=== PATIENT | male | born 1960 | race Caucasian/White ===

== ENCOUNTER 2016-08-19 20:30 | Inpatient (IN) | payer OTHER ==
--- NOTE | ~2016-08-19 | CN ---
Consultation Report [facility] [address] [place] [place]. [address] NAME: SRAVANTHI HIDALGO : 56 STATUS : ADM IN PAT#: [id number] AGE: 56 ADM/REG DATE : 08/20/16 MR#: [id number] REPORT SERV DATE: 08/20/16 DICTATED BY: YUMIKO SANTACRUZ DATE: 08/20/16 REPORT STATUS : Draft TRANSCRIBED BY: MODL DATE: 08/20/16 NEUROLOGY CONSULTATION DATE OF CONSULTATION: 08/20/2016 REASON FOR CONSULTATION: Subacute stroke. HOSPITALIST: Javier Alonso MD HISTORY OF PRESENT ILLNESS: The patient is a 56-year-old male, who has been having right- sided weakness for three days. He woke up yesterday morning with a right-sided facial droop and slurred speech. Consequently, he came to the emergency department for further evaluation and treatment. This morning, it is difficult to obtain a history from the patient. He is lethargic to obtunded. He has severe dysarthria, and it is difficult to understand him. He may have a slight aphasia. Unfortunately, no family is available at this point to obtain an accurate H and P. According to the patient's chart, his symptoms were constant, moderately severe and pronounced at the initial presentation, they did not resolve and so he came to the emergency department. PAST MEDICAL HISTORY: Hypertension, GERD, depression, osteoarthritis, obesity, and BPH. PAST SURGICAL HISTORY: Multiple lumbar laminectomies and left foot surgery. HOME MEDICATION LIST: Includes Dexilant 60 mg daily, Proscar 5 mg at bedtime, lisinopril 40 mg daily, potassium chloride 20 mEq daily, Zoloft 100 mg daily, and Flomax 0.4 mg at bedtime. ALLERGIES: NONE. SOCIAL HISTORY: The patient is single. He works as a concrete craftsman. He does not smoke, drink alcohol, or use illicits. FAMILY HISTORY: Unobtainable from the patient or the chart. REVIEW OF SYSTEMS: Unobtainable. PHYSICAL EXAMINATION: GENERAL: The patient is a 56-year-old male, who stands 6 feet 1 inch tall and weighs 298 pounds. VITAL SIGNS: He is afebrile. Heart rate 76, respiratory rate 18, O2 saturations on room air 95%, and blood pressure 163/84. NEUROLOGIC: When entering the room, the patient was lying on his side. He was drooling from the right corner of his mouth. He was difficult to arouse, obtunded. He would arouse Consultation Report [place] [id number] [place] [id number] NAME: SRAVANTHI HIDALGO : 56 STATUS : ADM IN PAT#: [id number] AGE: 56 ADM/REG DATE : 08/20/16 MR#: [id number] REPORT SERV DATE: 08/20/16 DICTATED BY: YUMIKO SANTACRUZ DATE: 08/20/16 REPORT STATUS : Draft TRANSCRIBED BY: ALESSIA DATE: 08/20/16 to painful stimuli or significant verbal stimulation. The patient had obvious ptosis of the right eye and significant right facial droop. Pupils are 3 mm, they are reactive. EOMs are intact, unable to accurately assess for sensory deficits, the patient is unable to report. He can stick out his tongue and it is deviated to the right. The patient demonstrates no ataxia with zrsgns-jp-lpmh on the left. Unable to perform rpheyf-pb-wlst with the right. He does have a pronator drift on the right. No visible tremor or asterixis. Upper extremity strength is a 4/5 on the left and a 2/5 on the right. DTRs are 3+ and brisk on the right and 2+ on the left. Again, unable to assess for sensation. Lower extremity strength is a 4/5 on the left and a 2/5 on the right. Again, reflexes are 3+ on the right and 2+ on the left. Upgoing toes on the right. The patient is unable to ambulate and incontinent of urine. NECK: No carotid bruits or JVD. CHEST: Lung sounds have some scattered rhonchi. The patient occasionally coughs. CARDIAC: Regular rate and rhythm without murmur, click, gallop, or rub. LABORATORY DATA: CBC normal. BMP relatively normal, potassium 3.7. Cholesterol values are elevated. BNP 503. TSH 2.18. Urinalysis, negative for a UTI. Chest x-ray, cardiomegaly, no acute changes. CT of the brain is read as acute to subacute stroke in left posterior parietal watershed zone and stroke in the right frontal zone, old stroke revealed in the right basal ganglia. NIH Stroke Scale is 9. ASSESSMENT/PLAN: 1. Acute to subacute stroke. At this point, the patient will undergo an MRI of the brain without gadolinium and an MRA of the head and neck with gadolinium. He will also have an echocardiogram with bubble study. He is n.p.o. He is severely dysarthric. He will be placed on aspirin 300 mg rectally and be placed on a statin when he can take p.o. Additional lab work will be checked. PT, OT, and Speech Therapy will be consulted. Case Management will be consulted for rehab placement. 2. Possible secondary seizure. The patient is very drowsy. He is incontinent of urine and was difficult to arouse. Because the patient has had several strokes in the past and now new stroke, he is at risk for secondary seizure. He will be placed on Keppra 750 mg IV q.12 hours. He will have an EEG and be placed on seizure precautions. Thank you again for including us in consultation. We will continue to follow with you. EVELYN/ALESSIA Yumiko Santacruz [facility]- / [id number] CC: Corey Randhawa M.D. Consultation Report [address] [address] NAME: SRAVANTHI HIDALGO : 56 STATUS : ADM IN [facility]#: [id number] AGE: 56 ADM/REG DATE : 08/20/16 MR#: [id number] REPORT SERV DATE: 08/20/16 DICTATED BY: YUMIKO SANTACRUZ DATE: 08/20/16 REPORT STATUS : Draft TRANSCRIBED BY: ALESSIA DATE: 08/20/16 MD Javier Morel MD
--- NOTE | ~2016-08-19 | IDS ---
Interim Discharge Summary [facility] [address] [place]. [address] NAME: SRAVANTHI HIDALGO : 56 STATUS : ADM IN [facility]#: [id number] AGE: 56 ADM/REG DATE : 08/20/16 MR#: [id number] REPORT SERV DATE: 09/09/16 DICTATED BY: BEN MCNEAL DATE: 09/08/16 REPORT STATUS : Draft TRANSCRIBED BY: MODL DATE: 09/08/16 ADMISSION DATE: 08/20/2016 DISCHARGE DATE: CONSULTANTS: Dr. Fuentes, Neurology. Dr. Slava Young, Gastroenterology. Dr. Chris Mayen, General Surgery. PROBLEM LIST: 1. Ischemic strokes, two locations, left brain. 2. Dysphagia, requiring J-tube. 3. Dysarthria. 4. Hypertension. 5. Gastroesophageal reflux. 6. Major depressive disorder. 7. BMI of 39.3. 8. Hyperlipidemia. 9. Chronic systolic congestive heart failure with left ventricular ejection fraction 35% to 40%. 10.Low vitamin B12. 11.Seborrheic dermatitis. 12.Mild anemia. 13.Episode of wide-complex tachycardia, asymptomatic. HISTORY: This patient was admitted on 08/20/2016. He had had several days of weakness on the right side of his body, associated with slurred speech and drooping of the face. Because of this, he came to the emergency room. His blood pressure was 207/119. CT showed ivcis-au-dhrxamrn stroke, 2.7 x 3.2, left posterior parietal watershed area and some older infarcts. He was admitted to our team. CTA of the neck on 08/20/2016 revealed two acute infarctions, left side, in the left frontal and posterior left temporoparietal region, nonhemorrhagic. CTA did not show any filling defects. CT of the neck showed normal carotid, vertebral, and subclavians. 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 Unfortunately, the patient failed his swallowing study. Initially, GI tried to place a PEG- type feeding tube; however, they were unable to transilluminate, so it was not safe, so he underwent J-tube placement with Dr. Chris Mayen on 08/26/2016. Echocardiogram, 08/22/2016, shows left atrial enlargement of 4.1 cm, left ventricular ejection fraction 35% to 40%, anterior anteroseptal apical hypokinesis. No clear evidence of septal defect or patent foramen ovale. The patient was seen by Neurology, recommended for secondary stroke prophylaxis with aspirin and statin. A1c was normal at 5.4. TSH normal at 2.18. He is continued with right-side weakness, although therapy is working with him. At this point in time, we are trying to find arrangements for rehab. Interim Discharge Summary [address] [place]. [address] NAME: SRAVANTHI HIDALGO : 56 STATUS : ADM IN PAT#: [id number] AGE: 56 ADM/REG DATE : 08/20/16 MR#: [id number] REPORT SERV DATE: 09/09/16 DICTATED BY: BEN MCNEAL DATE: 09/08/16 REPORT STATUS : Draft TRANSCRIBED BY: ALESSIA DATE: 09/08/16 He has had some short episodes of nonsustained ventricular tachycardia. He is on beta- gris. He is asymptomatic with these. He has seborrhea on the face and scalp. Topical Selsun Blue is being used for this at this time. He has had some diarrhea, but it is intermittent. Imodium is available for him to use p.r.n. He has some reflux. We have him on Protonix and Pepcid. Nutrition was trying to increase the amount of calories, he is getting up to about 2300, but he has significant obesity with BMI of 39.3, so we are using more conservative calorie quantity that we think will provide him adequate nutrition, especially with his low level of activity at this time. WILLIAN/ALESSIA Ben Mcneal M.D. / [id number] CC: Ben Mcneal M.D.
--- NOTE | ~2016-08-19 | CN ---
Consultation Report [facility] [address] [place]. [address] NAME: SRAVANTHI RIVERA : 56 STATUS : ADM IN PAT#: [id number] AGE: 56 ADM/REG DATE : 08/20/16 MR#: [id number] REPORT SERV DATE: 08/23/16 DICTATED BY: ROCIO NOLEN DATE: 08/23/16 REPORT STATUS : Draft TRANSCRIBED BY: MODL DATE: 08/23/16 GI CONSULTATION DATE OF CONSULTATION: 08/23/2016 REASON FOR CONSULTATION: Evaluation and management of oropharyngeal dysphagia in the setting of acute CVA, need for PEG tube. HISTORY OF PRESENT ILLNESS: Mr. Rivera is a 56-year-old male patient, who was admitted on the 08/20/2016 with a chief complaint of right-sided weakness x3 days. On the day of admission, he woke up with right facial drooping and slurred speech. He was brought into the emergency room, found to have acute left CVA in two separate areas. He has been trialed on Dobbhoff tube which was then unable to be placed. He went to Interventional Radiology today for gastrostomy tube placement which was unsuccessful, thus prompting GI consultation. However, it appears that he has been reordered to have a swallow study at the bedside with Speech Path, as he has had some improvement and is currently drinking water when I go in to see him without difficulty. I have discussed with the patient and the patient's family, if unable to pass next swallow evaluation, we will place PEG on Friday. I did discuss risks, benefits, alternatives, and complications with him to include, but not limited to risk of bleeding, perforation, infection, reaction to medications with cardiac or pulmonary side effects. They are agreeable to proceed. PAST MEDICAL HISTORY: Hypertension, GERD, depression, osteoarthritis, obesity, and BPH. SURGICAL HISTORY: Lumbar laminectomy and left foot surgery. SOCIAL HISTORY: Single. Works in concrete as a cabello. Does not use alcohol, tobacco, or illicits. FAMILY HISTORY: Negative from a GI standpoint. ALLERGIES: NOTHING. HOME MEDICATIONS: Dexilant, Proscar, Proventil, potassium, Zoloft, Flomax. REVIEW OF SYSTEMS: A 10-point review of systems has been obtained with pertinent positives being addressed in the history of present illness. PHYSICAL EXAMINATION: VITAL SIGNS: Temperature is 98.6, pulse of 81, respirations of 20, blood pressure 167/70. NEURO: This is an alert, male, resting in bed with notable right-sided weakness. GENERAL: Cooperative with no apparent distress. He is awake. He is alert. He is oriented x3. Dysarthric speech, but able to understand what he is saying. Consultation Report [place] [address] [place]. [address] NAME: SRAVANTHI RIVERA : 56 STATUS : ADM IN [facility]#: [id number] AGE: 56 ADM/REG DATE : 08/20/16 MR#: [id number] REPORT SERV DATE: 08/23/16 DICTATED BY: ROCIO NOLEN DATE: 08/23/16 REPORT STATUS : Draft TRANSCRIBED BY: ALESSIA DATE: 08/23/16 LUNGS: Diminished throughout with normal respiratory effort exhibited. Equal expansion. CARDIOVASCULAR SYSTEM: Regular rate and rhythm. S1, S2. No murmurs, rubs, or gallops, S3 or S4 appreciated. ABDOMEN: Soft, nontender, obese. EXTREMITIES: No edema. Normal distal pulses. SKIN: Warm, dry, and intact. PERTINENT LABORATORY DATA: Sodium 139, potassium 3.9, BUN is 23, creatinine is 1.04. White count 7.5, hemoglobin 13, hematocrit 39.4, platelet count 241. ASSESSMENT AND PLAN: 1. Oropharyngeal dysphagia in need of PEG tube. 2. Acute stroke, two separate areas on the left side. 3. Hypertension. PLAN: PEG on Friday. If he fails this, repeat swallow study. Orders have been written. GI has been informed and will plan on placing this Friday. AL/ALESSIA ANDA Ramey / [id number] CC: Javier Alonso MD
--- NOTE | ~2016-08-19 | EEG ---
Electroencephalogram [facility] [address] [facility] [address] [place]. [address] NAME: SRAVANTHI HIDALGO : 56 STATUS : ADM IN PAT#: [id number] AGE: 56 ADM/REG DATE : 08/20/16 MR#: [id number] REPORT SERV DATE: 08/20/16 DICTATED BY: DATE: REPORT STATUS : Draft TRANSCRIBED BY: MODL DATE: 08/20/16 NEUROLOGY EEG REPORT CLINICAL INDICATIONS: Encephalopathy. DISCUSSION: This EEG was performed using 10/20 electrode placement system. During the EEG study, symmetric background activity was noted with predominant occipital rhythm of roughly 6 to 7 hertz. Photic stimulation was performed with only trace driving response is seen. Hyperventilation was not performed secondary to the patient's mental status. During the EEG study, the patient had achieved drowsy, stage I and II sleep with appropriate sleep spindles as well as K-complexes, and no focal abnormalities, seizure activity, or seizure discharge was otherwise noted. INTERPRETATION: This EEG study obtained during awake, drowsy as well as stage I and II sleep, may be considered mildly abnormal secondary to mild generalized slowing. No seizure activity, seizure discharge, or focal abnormality was otherwise noted. Clinical correlation is recommended. [facility]/MODL Abdiel Fuentes MD / [id number] CC: Javier Alonso MD
--- NOTE | ~2016-08-19 | IDS ---
Interim Discharge Summary [facility] [address] [place]. [address] NAME: SRAVANTHI HIDALGO : 56 STATUS : ADM IN PAT#: [id number] AGE: 56 ADM/REG DATE : 08/20/16 MR#: [id number] REPORT SERV DATE: 08/27/16 DICTATED BY: DATE: REPORT STATUS : Draft TRANSCRIBED BY: MODL DATE: 08/26/16 ADMISSION DATE: 08/20/2016 DISCHARGE DATE: DIAGNOSES: Current interim diagnoses list includes: 1. Subacute stroke to left posterior parietal area and superior left frontal lobe area. 2. Dysphagia. 3. Dysarthria. 4. Hypertension. 5. Benign prostatic hypertrophy. 6. Gastroesophageal reflux disease. 7. Hiatal hernia. CONSULTS: GI, Dr. Young; and Neurology, Yumiko Toledo and Dr. Fuentes. PROCEDURES AND IMAGIN. 08/19/2016, CT of the brain without contrast showed probable acute to subacute CVA left posterior parietal watershed zone, plus indeterminate age, although possibly second acute to subacute CVA superior left frontal lobe cortex with small old lacunar infarcts in both basal ganglia. 2. Portable chest x-ray showed cardiomegaly accentuated due to shallow inspiration. No acute cardiopulmonary abnormality. 3. EEG on 08/20/2016 showed mildly abnormal secondary to mild generalized slowing with no seizure activity or focal abnormality noted. 4. 08/19/2016 modified barium swallow study. Thin barium was removed from the patient's oral cavity due to the patient retaining thin barium without swallowing. 5. 08/20/2016 CTA of the brain without contrast showed 2 acute infarctions left side, nonhemorrhagic, left frontal and posterior left temporal parietal region. 6. CTA of the neck showed 2 acute infarctions in the left side and intracranial CTA demonstrates no proximal vessel filling defect or embolus. 7. Brachiocephalic CTA demonstrates normal carotid vertebral and subclavian arteries. There is evidence for extensive posterior ossification of the posterior longitudinal ligament. This may result in cord injury or radicular complaints. 8. On 08/23/2016, there was an attempted G-tube placement by Interventional Radiology which failed due to patient's body habitus. 9. On 08/26/2016, the patient was unable to have a J-tube placed per endoscopy and we will have to have placed by surgery. HOSPITAL COURSE: Please see H and P by Dr. Neville Barreto on 08/20/2016 for stroke-like symptoms. The patient was originally obtunded upon admission. The patient has progressively showed improvement of various symptoms but has had prolonged difficulty with swallowing and has had several swallow studies at bedside in addition to the modified barium swallow which he has not passed, the latest being on Friday. An attempt to place the PEG tube per surgery will be done this afternoon. Due to the patient's financial situation of being self-pay, it was recommended by Dietary to use TwoCal for supplementation. The patient also has dysarthria. Speech Therapy at this time thinks the patient might have possible Interim Discharge Summary [place] [id number] [facility] [place]. [address] NAME: SRAVANTHI HIDALGO : 56 STATUS : ADM IN [facility]#: [id number] AGE: 56 ADM/REG DATE : 08/20/16 MR#: [id number] REPORT SERV DATE: 08/27/16 DICTATED BY: DATE: REPORT STATUS : Draft TRANSCRIBED BY: MODL DATE: 08/26/16 vocal cord paralysis, which means that the patient would never be able to swallow, and it was recommended to repeat the swallow prior to patient's discharge. The patient is alert and oriented x3. Has been able to sign his own consent and continues to increase in his verbal ability daily. The patient is able to answer questions appropriately but is still having difficulty with some consonants. The patient had severe right upper lid ptosis and facial droop, which has also been resolving. Physical Therapy has been working with the patient but still requires two patients with a gait belt and walker to get him to the door. The patient's blood pressure has been very labile due to trying to keep his blood pressure high enough so that he does not have another stroke but not too high so that he has another stroke. The patient has been unable to take p.o. medications and has been on IV hydralazine and Catapres patch of 0.32 mg daily. The patient's blood pressure still has been up to 198/94 despite that, so his hydralazine has been increased today to 20 mg, and it is hoped that tomorrow patient will be able to have medication down his NG tube to keep it within normal limits. The patient is on IV fluids at 125 an hour and has been having good kidney function with this. The patient has a history of BPH but has been able to void and empty his bladder even though most of the time he is incontinent but occasionally he is able to void into his urinal. The patient has increased strength in bilateral lower extremities. Physical Therapy now thinks that both legs are equal and patient is now starting to have strength in his right arm. It was noted during endoscopy today that the patient has a moderate hiatal hernia, and the patient also has very large body habitus with a BMI of 135, which has impacted his ability to have previous feeding tube placement. Dobhoff was not able to be placed due to the patient's inability to swallow. The patient's A1c of note is 5.4. The patient is self-pay, which has led to difficulty in trying to get patient DME. The patient has a sister, Taylor, who will be primary caregiver when the patient is discharged. Sister has expressed reluctance to have this responsibility and she will discuss the situation with her other sister. PT is willing to work with them and teach them skills for transferring the patient, so they will be returning phone calls regarding a time that this is possible since the family lives about an hour away. Case management has been trying to get a kayy bed or any possible PT at this time due to patient's good prognosis for increased functionality if he can have PT, OT, and Speech therapy. The patient's labs from today: Sodium is 137, potassium is 3.8, chloride is 104, bicarb is 23.8, BUN is 15, creatinine 0.99, GFR is 97, glucose is 76, calcium is 8.8, magnesium is 2.2, phosphorus is 3.2. WBC is 5.8, hemoglobin 13.0, hematocrit 39.9, platelets 218, INR 1.2. [facility] Kassidy Rodrigues NP / [id number]
--- NOTE | ~2016-08-19 | DS ---
Discharge Summary [facility] [address] [place]. [address] NAME: SRAVANTHI HIDALGO : 56 STATUS : DIS IN PAT#: [id number] AGE: 56 ADM/REG DATE : 08/20/16 MR#: [id number] REPORT SERV DATE: 10/27/16 DICTATED BY: FRANK DRUMMOND DATE: 10/25/16 REPORT STATUS : Draft TRANSCRIBED BY: MODL DATE: 10/25/16 ADMISSION DATE: 08/20/2016 DISCHARGE DATE: 10/25/2016 REASON FOR ADMISSION: This is a 56-year-old male who came in with experiencing weakness over 3-day period, generalized on the right side, and then woke up noticing that he was having a change in his speech and facial droop. Imaging in the ER, CT of the brain which showed probable acute to subacute 2.7 x 3.2 CVA, left posterior parietal watershed, superior left frontal lobe cortex measuring 16 mm, and small old lacunar infarcts. DISCHARGE DIAGNOSES: 1. Status post cerebrovascular accident x2 to left brain approximately 08/20/2016. 2. Status post dysphagia, status post J-tube. 3. Dysarthria, improved. 4. Hypertension. 5. Gastroesophageal reflux disease. 6. Major depressive disorder. 7. BMI of 39.3. 8. Vitamin B12 deficiency. 9. Seborrheic dermatitis. 10.Mild anemia. 11.Episodes of wide-complex tachycardia. 12.Hyperlipidemia with history of elevated liver function enzymes associated with high- dose statin therapy. 13.Chronic systolic congestive heart failure. Please see Dr. Christopher's admission H and P on 08/20/2016 as well as subsequent interim summaries by Kassidy Rodrigues on 08/26/2016, Dr. Titus on 09/03/2016, Dr. Mcneal on 09/09/2016, Dr. Titus on 09/16/2016, Dr. Mcneal on 09/23/2016, Dr. Titus on 09/30/2016, Dr. Mcneal on 10/07/2016, and Dr. Sorto on 10/14/2016. HOSPITAL COURSE: The patient had lengthy hospital stay. However, it was not related to his overall medical condition but rather to his issues with having no family caregivers and needing rehab and not having any insurance. The patient still with some right-sided residual deficit and still in need and resolving dysphagia had a J-tube with feedings for a time but then actually had pulled the J-tube out himself after his dysphagia was resolving. He has been able to eat effectively and have good calorie intake by mouth alone. The J-tube site just has a dressing over it. It has had some moderate amount of serous drainage but nothing to suggest infection. The patient's insurance was finally secured with [employer], and the patient was finally able to receive intermediate rehab placement [place] [facility] [place] and he will be transferring there today. DISCHARGE CONDITION: Stable. DISCHARGE MEDICATIONS: 1. Flomax 0.4 mg p.o. at bedtime. 2. Potassium chloride 20 mEq p.o. daily. Discharge Summary [address] [id number] [place]. [address] NAME: SRAVANTHI HIDALGO : 56 STATUS : DIS IN PAT#: [id number] AGE: 56 ADM/REG DATE : 08/20/16 MR#: [id number] REPORT SERV DATE: 10/27/16 DICTATED BY: FRANK DRUMMOND DATE: 10/25/16 REPORT STATUS : Draft TRANSCRIBED BY: ALESSIA DATE: 10/25/16 3. Dexilant 60 mg p.o. daily. 4. Lisinopril 40 mg p.o. daily. 5. Zoloft 100 mg p.o. daily. 6. Proscar 5 mg p.o. at bedtime. 7. Aspirin 81 mg p.o. daily. 8. Carafate 1 g p.o. before meals and at bedtime. 9. Hydrocortisone cream b.i.d. to affected areas. 10.Keppra 250 mg p.o. b.i.d. 11.Lexapro 20 mg p.o. daily. 12.Lipitor 20 mg p.o. at bedtime. 13.Melatonin 3 mg p.o. at bedtime. 14.Toprol 100 mg p.o. at bedtime. 15.Zoloft 100 mg p.o. daily. 16.Vitamin D 5000 units p.o. daily. DISCHARGE PLAN: The patient is discharged to [facility] for intermediate rehab. He will either transition to long-term care at facility with choices or transition to family members at home with choices. TDR/MODL Frank Drummond APN / [id number] CC: Altagracia Polanco, [facility] Chris Mayen Jr., M.D.
--- NOTE | ~2016-08-19 | EGD ---
EGD REPORT [facility] [address] [address] NAME: SRAVANTHI RIVERA : 56 STATUS : ADM IN PAT#: [id number] AGE: 56 ADM/REG DATE : 08/20/16 MR#: [id number] REPORT SERV DATE: 08/26/16 DICTATED BY: SLAVA YOUNG DATE: 08/26/16 REPORT STATUS : Draft TRANSCRIBED BY: [facility] DATE: 08/26/16 End[facility] Patient Name: Sravanthi Rivera Date of : 1960 Attending MD: SLAVA YOUNG MD Procedure Date No Time: 08/26/2016 Procedure: Upper GI endoscopy Indications: Place PEG because patient is unable to eat, Place PEG due to impaired swallowing, Place PEG due to aspiration risk Referring MD: HONORIO LOBATO Medicines: Monitored Anesthesia Care Complications: No immediate complications. Estimated blood loss: None. Procedure: Pre-Anesthesia Assessment: - ASA Grade Assessment: III - A patient with severe systemic disease. After obtaining informed consent, the endoscope was passed under direct vision. Throughout the procedure, the patient's blood pressure, pulse, and oxygen saturations were monitored continuously. The GIF [id number] was introduced through the mouth, and advanced to the second part of duodenum. The upper GI endoscopy was accomplished without difficulty. The patient tolerated the procedure well. Findings: The examined esophagus was normal. A medium-sized hiatus hernia was present. The patient was placed in the supine position for PEG placement. The stomach was insufflated to appose gastric and abdominal main. However, due to inability to localize a site for safe percutaneous placement, inadequate transillumination and inadequate one-to-one localization (i.e. inadequate localization by palpation) PEG was not completed. The needle/trocar was not passed. The examined duodenum was normal. Impression: - Hiatus hernia. - Due to inability to localize a site for safe percutaneous placement, inadequate transillumination and inadequate one-to-one localization (i.e. inadequate localization by palpation) PEG was not completed. The needle/trocar was not passed. Recommendation: - Return patient to hospital [facility] for ongoing care. - Refer to a surgeon today for feeding tube placement. EGD REPORT [address] [place]. [address] NAME: SRAVANTHI RIVERA : 56 STATUS : ADM IN [facility]#: [id number] AGE: 56 ADM/REG DATE : 08/20/16 MR#: [id number] REPORT SERV DATE: 08/26/16 DICTATED BY: SLAVA YOUNG DATE: 08/26/16 REPORT STATUS : Draft TRANSCRIBED BY: [employer] DATE: 08/26/16 Procedure Code(s): --- Professional --- 27156, Esophagogastroduodenoscopy, flexible, transoral; diagnostic, including collection of specimen(s) by brushing or washing, when performed (separate procedure) Diagnosis Code(s): --- Professional --- K44.9, Diaphragmatic hernia without obstruction or gangrene R63.3, Feeding difficulties Z43.1, Encounter for attention to gastrostomy R13.10, Dysphagia, unspecified CPT copyright 2013 [employer]. All rights reserved. The codes documented in this report are preliminary and upon wrapping machine operator review may be revised to meet current compliance requirements. Slava Young MD SLAVA YOUNG MD 08/26/2016 8:21 AM This report has been signed electronically. Number of Addenda: 0 Note Initiated On: 08/26/2016 7:50 AM Scope Withdrawal Time 0 hours 0 minutes 0 seconds [id number] [place] [address]
--- NOTE | ~2016-08-19 | IDS ---
Interim Discharge Summary [facility] [address] [place]. [address] NAME: SRAVANTHI HIDALGO : 56 STATUS : ADM IN PAT#: [id number] AGE: 56 ADM/REG DATE : 08/20/16 MR#: [id number] REPORT SERV DATE: 09/16/16 DICTATED BY: MECCA CULVER DATE: 09/16/16 REPORT STATUS : Draft TRANSCRIBED BY: MODL DATE: 09/16/16 ADMISSION DATE: 08/20/2016 DISCHARGE DATE: Date that I took over this patient again is 09/10/2016, and date of until I took care of this patient is 09/16/2016. DIAGNOSES: So far is the same diagnoses. Essentially the patient has had a large left MCA stroke with right-sided hemiparesis and aphasia and dysarthria and dysphagia. The patient is continuing to be on J-tube feeds for nutrition. However, the new development that happened during my time that I took care of this patient this time was that his J-tube got dislodged. Hence, we had to send him back to Interventional Radiology, so that he could get his J-tube put in again. So, after insertion of his J-tube, tube feeds with Jevity has started again. The patient however started getting more alert, and now, he is able to somewhat get up from the bed on to a chair with some assistance. Now, he is alert enough to ask to see if his swallowing could be retested so that he could eat at least pureed food. Hence, I have ordered a swallowing study on him or an MBS or modified barium swallow study, which will happen tomorrow. If he passes his MBS then we may be able to start him on soft pureed diet with aspiration precautions and reduce his J-tube feeds with Jevity to say maybe 30 mL an hour or cut it in half based on how much he is able to eat by mouth, and all this will happen only if he passes his modified barium swallow study tomorrow. Discharge of this patient is a big issue as he does not have any insurance. The patient's family cannot take care of him and no one is around to be able to take him home and take care of him at this time. Hence, the therapeutic case manager are trying to place him in an SNF/inpatient rehab most likely SNF. Insurance pending and placement pending. He continues to stay on in the hospital. PEPEA/MINDAL Mecca Culver M.D. / [id number] CC: Mecca Culver M.D.
--- NOTE | ~2016-08-19 | IDS ---
Interim Discharge Summary [facility] [address] [place]. [address] NAME: SRAVANTHI HIDALGO : 56 STATUS : ADM IN PAT#: [id number] AGE: 56 ADM/REG DATE : 08/20/16 MR#: [id number] REPORT SERV DATE: 09/30/16 DICTATED BY: MECCA CULVER DATE: 09/30/16 REPORT STATUS : Draft TRANSCRIBED BY: MODL DATE: 09/30/16 ADMISSION DATE: 08/20/2016 DISCHARGE DATE: Date that I took over care of this patient is 09/23/2016. DIAGNOSES: So far: 1. 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 2. The patient did have dysphagia at one time requiring J-tube placement, now that has improved, and the patient is able to eat pureed and soft diet right now without aspirating. 3. Leaking J-tube site - this has been fixed as I referred the patient to Interventional Radiology to get a sealant of his J-tube area, and this has happened, and there was no more leak in the area. 4. Aphasia from the stroke. 5. Severe depression from the stroke. I have increased the Lexapro to 20 mg a day from 10 mg a day. 6. Extreme apathy and unwillingness to participate in any PT/OT. BRIEF HOSPITAL COURSE: During my time that I took care of this patient essentially, the patient's status remained unchanged and he continues to be medically stable for discharge to rehab/SNF. However, because of insurance and other issues, which are nonmedical, the patient has not been transferred yet. He continues to get physical therapy, occupational therapy, but will not participate in any. Hence after a long discussion with the director of PT and utilization review, etc., we moved the patient from his regular room of 114 that he has been in for several weeks now to room 126, which is a bigger room. The patient continues to be the same, and I had a talk with the patient too, but he simply does not seem to be motivated for doing any physical therapy and occupational therapy at this time. We tried to put a Valladares catheter in him as the patient is incontinent of urine; however, he refused the Valladares too. Hence, this gentleman is urinary incontinent and is requiring diaper changes so frequently and will not allow us to put a Valladares catheter in. We do not have any other resources for this patient but to wait on his insurance to get approved so he can go on to a usp care. This patient will be taken over by my colleague as of 10/01/2016. THERESE/ALESSIA Mecca Culver M.D. / [id number] Interim Discharge Summary [address] [address] NAME: SRAVANTHI HIDALGO : 56 STATUS : ADM IN PAT#: [id number] AGE: 56 ADM/REG DATE : 08/20/16 MR#: [id number] REPORT SERV DATE: 09/30/16 DICTATED BY: MECCA CULVER DATE: 09/30/16 REPORT STATUS : Draft TRANSCRIBED BY: ALESSIA DATE: 09/30/16 CC: Mecca Culver M.D.
--- NOTE | ~2016-08-19 | IDS ---
Interim Discharge Summary [facility] [address] [place]. [address] NAME: SRAVANTHI HIDALGO : 56 STATUS : ADM IN PAT#: [id number] AGE: 56 ADM/REG DATE : 08/20/16 MR#: [id number] REPORT SERV DATE: 09/22/16 DICTATED BY: BEN MCNEAL DATE: 09/22/16 REPORT STATUS : Draft TRANSCRIBED BY: MODL DATE: 09/22/16 ADMISSION DATE: 08/20/2016 DISCHARGE DATE: CONSULTANTS: Dr. Fuentes, Neurology; Dr. Slava Young, Gastroenterology; Dr. Chris Mayen, General Surgery. PROBLEM LIST: 1. Two ischemic strokes to the left brain. 2. Dysphagia with J tube, now improved swallowing. 3. Dysarthria. 4. Hypertension. 5. Gastroesophageal reflux, doing better. 6. Major depression. 7. Body mass index of 39.3. 8. Chronic systolic congestive heart failure with left ventricular ejection fraction 35% to 40%. 9. Hyperlipidemia. 10.Low vitamin B12. 11.Seborrheic dermatitis, improved. 12.Mild anemia. 13.Episode of wide-complex tachycardia. HISTORY: This gentleman originally admitted on 08/20/2016 with several days of weakness on the right side of his body and slurred speech and drooping of the face. He came to the emergency room with blood pressure 207/119. CT brain showed acute to subacute stroke 2.7 x 3.2, left posterior parietal watershed and some older infarcts. He was admitted to our team. CT of the neck on 08/20/2016 and of brain revealed two acute infarctions in the left side in the left frontal and posterior left temporoparietal region, nonhemorrhagic. No filling defects in his carotids, vertebrals, or subclavian. 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 He initially failed the swallow study. GI tried to place a PEG, however, they were unable to transilluminate, so he underwent surgical J-tube placement with Dr. Mayen. He subsequently had displacement of that J-tube and had to have it replaced by Interventional Radiology and it still is in place, and we flush it with water four times a day. However, the patient's swallowing has improved on his modified barium swallow on 09/17/2016 so, he has a pureed diet, pureed meats, nectar thick liquids, and he has only very rare coughing spells. He uses a spoon, does not sip or use a straw. The patient's systolic congestive heart failure was currently well compensated without symptoms. We are still trying to achieve rehab placement for this gentleman. I have not seen any visitors during the time I have been involved in his care. Interim Discharge Summary [address] [place]. [address] NAME: SRAVANTHI HIDALGO : 56 STATUS : ADM IN PAT#: [id number] AGE: 56 ADM/REG DATE : 08/20/16 MR#: [id number] REPORT SERV DATE: 09/22/16 DICTATED BY: BEN MCNEAL DATE: 09/22/16 REPORT STATUS : Draft TRANSCRIBED BY: ALESSIA DATE: 09/22/16 WILLIAN/ALESSIA Ben Mcneal M.D. / [id number] CC: Ben Mcneal M.D.
--- NOTE | ~2016-08-19 | IDS ---
Interim Discharge Summary [facility] [address] [place] [place]. [address] NAME: SRAVANTHI HIDALGO : 56 STATUS : ADM IN PAT#: [id number] AGE: 56 ADM/REG DATE : 08/20/16 MR#: [id number] REPORT SERV DATE: 10/06/16 DICTATED BY: BEN MCNEAL DATE: 10/06/16 REPORT STATUS : Draft TRANSCRIBED BY: MODL DATE: 10/06/16 ADMISSION DATE: 08/20/2016 DISCHARGE DATE: CONSULTANTS: Dr. Fuentes, Neurology. Dr. Slava Young, Gastroenterology. Dr. Chris Mayen, General Surgery. PROBLEM LIST: 1. Status post two ischemic strokes, left brain, approximately 08/20/2016. 2. Dysphagia, with J-tube. Now improved. 3. Dysarthria. 4. Hypertension. 5. Gastroesophageal reflux, doing better. 6. Major depressive disorder. 7. Body mass index 39.3. 8. Low vitamin B12. 9. Seborrheic dermatitis. 10.Mild anemia. 11.Episodes of wide-complex tachycardia. HISTORY: This patient was originally admitted 08/20/2016 with several days of weakness on the right side of his body with slurred speech and drooping of the face. He came to the emergency room because of this and was noted to be hypertensive with blood pressures 207/119. Initial CT showed acute to subacute stroke, 2.7 x 3.2, in the left posterior parietal watershed and some older infarcts. He was admitted to our team for this. CT of the neck to 08/20/2016 and of the brain revealed two acute infarcts in the left side, left frontal and posterior, left temporoparietal region, but nonhemorrhagic. No filling defects in the carotids, vertebral, or subclavian. There was extensive ossification of the posterior longitudinal ligament. He initially failed the swallow studies and GI tried to place a PEG; however, there was no ability to transilluminate, so he underwent a surgical J-tube placement with Dr. Mayen. He subsequently had displacement of that J-tube and had to have it replaced. He has gotten it plugged a few times and has been replaced. Force of the patient's swallowing improved, so that as of 09/17/2016, he began on a pureed diet, pureed meats, nectar thick liquids. Only rare cough. He has to use a spoon, do not sip or use straw. The patient has systolic congestive heart failure, well compensated. He has occasional wide complex tachycardia, but is on beta-gris. The patient is discouraged. He has almost no visitors that I am aware of. Reportedly, he has sisters, but some are disabled and not able to take care of him because of their medical problems. Another one reportedly travels and not able to take care of him and because of lack of insurance, we have not been able to find a rehab placement for him. He is having ongoing care with Physical Therapy and Occupational Therapy here. He is Interim Discharge Summary [address] [place]. [address] NAME: SRAVANTHI HIDALGO : 56 STATUS : ADM IN [facility]#: [id number] AGE: 56 ADM/REG DATE : 08/20/16 MR#: [id number] REPORT SERV DATE: 10/06/16 DICTATED BY: BEN MCNEAL DATE: 10/06/16 REPORT STATUS : Draft TRANSCRIBED BY: ALESSIA DATE: 10/06/16 participating, but does not always make a great effort. Recently, we have had a number of discussions with him about this. He does seem to understand. Acetylene Burner has met with him. He is on Lexapro. We are doing our best to try to keep him out of the bed and keep him mobilized. He does seem cooperative. WILLIAN/ALESSIA Ben Mcneal M.D. / [id number] CC: Ben Mcneal M.D.
--- NOTE | ~2016-08-19 | IDS ---
Interim Discharge Summary [facility] [address] [place]. [address] NAME: SRAVANTHI HIDALGO : 56 STATUS : ADM IN PAT#: [id number] AGE: 56 ADM/REG DATE : 08/20/16 MR#: [id number] REPORT SERV DATE: 09/01/16 DICTATED BY: MECCA CULVER DATE: 09/01/16 REPORT STATUS : Draft TRANSCRIBED BY: MODL DATE: 09/01/16 ADMISSION DATE: 08/20/2016 DISCHARGE DATE: Date of transferring this patient to my colleague's care would be 09/03/2016. CONDITION: Condition of the patient is stable. DIAGNOSES: Include: 1. Subacute stroke on the left side, in the left posterior parietal area and superior left frontal lobe area leaving the patient with severe right-sided hemiparesis. 2. Dysarthria. 3. Aphasia. 4. Dysphagia. 5. Mild depression for which the patient is on Lexapro. 6. Status post J-tube placement for ongoing nutrition. BRIEF HOSPITAL COURSE: During the period that I took care of this patient include that this patient has been in the hospital since 08/20/2016 for severe right-sided hemiparesis and dysphagia and dysarthria. When a G-tube was tried to be inserted endoscopically because of his body habitus, this became impossible. GI attempted a J-tube placement, which also became impossible because of body habitus. Hence, we had to get the surgeon involved to go ahead and put a J-tube in this patient. Dr. Mayen did the operative procedure and was successful in placing a J-tube in this obese patient. The J-tube has been in place and tube feedings have been started on this patient for the last three days now, and he has been doing really well on Jevity tube feeds. He is on 60 mL an hour of Jevity feeds now and has been doing well, and Physical Therapy and Occupational Therapy have been working with him to improve his weakness on the right side. In the meantime, I diagnosed him with mild depression and I have started him on Lexapro and this has provided some improvement with the patient's mood. Because of insurance purposes, the patient is continuing to stay in the hospital as he has no where to be discharged to. He had no insurance so far, hence we could not send him to an inpatient rehab. half sole fitter have been working on getting him [employer], and once he is approved, he will be transferred to inpatient rehab for ongoing inpatient physical therapy, occupational therapy, and speech therapy. I have discussed this case with family multiple times, and family also wishes that he goes to an inpatient rehab as he needs 24/7 care, which can only be provided at an SNF/Inpatient Rehab. He is a full code as of now. THERESE/ALESSIA Mecca Culver M.D. Interim Discharge Summary [address] [address] NAME: SRAVANTHI HIDALGO : 56 STATUS : ADM IN PAT#: [id number] AGE: 56 ADM/REG DATE : 08/20/16 MR#: [id number] REPORT SERV DATE: 09/01/16 DICTATED BY: MECCA CULVER DATE: 09/01/16 REPORT STATUS : Draft TRANSCRIBED BY: ALESSIA DATE: 09/01/16 / [id number] CC: Mecca Culver M.D. NO PCP
--- NOTE | ~2016-08-19 | HP ---
History And Physical [place] [id number] [facility] [place]. [address] NAME: SRAAVNTHI HIDALGO : 56 STATUS : ADM IN [facility]#: [id number] AGE: 56 ADM/REG DATE : 08/20/16 MR#: [id number] REPORT SERV DATE: 08/20/16 DICTATED BY: WENDI HPOE DATE: 08/20/16 REPORT STATUS : Draft TRANSCRIBED BY: MODL DATE: 08/20/16 DATE OF ADMISSION: 08/20/2016 CHIEF COMPLAINT: Stroke-like symptoms. HISTORY OF PRESENT ILLNESS: The patient is a 56-year-old male who has been experiencing weakness over the last 3 days, has been generalized on the right side; however, this morning when he woke up, he started noticing that he was having change in his speech and facial droop. Family noticed this also, the symptoms of slurred speech and facial droop have been intermittent. The patient comes in worried for stroke-like symptoms. Symptoms have been constant, moderate severity, more pronounced at initial presentation. The patient denies any pain, radiating symptoms. No headache, nausea, vomiting, fever, or chills. Does have a history of high blood pressure, but does appear to have weakness on the right side, arm, and facial droop, there are no worsening or relieving symptoms appreciated. Symptoms are still currently present and have not resolved. REVIEW OF SYSTEMS: GENERAL: Does report weakness, but no fever or chills. EYES: Does have lid droop, but no pain. ENT: No sore throat or congestion. NEURO: Does have slurred speech, facial droop, and weakness on right arm. SKIN: No rashes or bruising. RESPIRATORY: No shortness of breath or cough. CV: No chest pain or palpitations. GI: No nausea or vomiting. : No dysuria or urgency currently. MUSCULOSKELETAL: Has chronic arthralgias and myalgias. ENDO: No fatigue or polyuria. HEME: No bleeding or bruising. IMMUNOLOGIC: No rhinorrhea. PSYCH: No anxiety or confusion. ENT: He has difficulty swallowing pills currently. PAST MEDICAL HISTORY: Hypertension, reflux, depression, arthritis. PAST SURGICAL HISTORY: Left foot surgical procedure and multiple laminectomies. FAMILY HISTORY: Cancer, diabetes, cardiovascular disease, [place], and stroke. SOCIAL HISTORY: [place] [employer]. No tobacco, alcohol, or illicits. ALLERGIES: NO KNOWN DRUG ALLERGIES. HOME MEDICATIONS: Dexilant, Proscar, Prinivil, K-Dur, Zoloft, Flomax. LABORATORY DATA: EKG, rate 77, QTc 466, incomplete left bundle with sinus rhythm and PVCs, History And Physical [place] [address] [place]. [address] NAME: SRAVANTHI HIDALGO : 56 STATUS : ADM IN PAT#: [id number] AGE: 56 ADM/REG DATE : 08/20/16 MR#: [id number] REPORT SERV DATE: 08/20/16 DICTATED BY: WENDI HOPE DATE: 08/20/16 REPORT STATUS : Draft TRANSCRIBED BY: ALESSIA DATE: 08/20/16 had prolonged QTc of 466 when compared to EKG in May 2015, was also noted to have comparable left bundle branch type pattern. PHYSICAL EXAMINATION: VITAL SIGNS: Temperature 97.8, pulse 87, respirations 17, and O2 sats 95%. Initial blood pressure was 207/119. Currently, systolic improved to 177. GENERAL: Obese, appears older than stated age, mild discomfort secondary to situation. EYES: Has right side lid lag over the left, pupils equal, reactive, and able to move in all directions. Grossly able to tell range of different ____ pratt view. ENT: Nares patent. Tongue with mild deviation from midline, does have facial droop. RESPIRATORY: Clear to auscultation. No wheezes or rales. CV: Regular rate. No rubs. Cap refill less than 2 seconds. GI: Soft, nontender, and nondistended. Bowel sounds positive. : Deferred. MUSCULOSKELETAL: Moves all extremities without difficulty. Able to move upper extremities with full range of motion, but definitely weaker on right arm greater than left. SKIN: Warm and dry. LYMPH: No cervical or supraclavicular lymphadenopathy. HEME: No bleeding or bruising. NEURO: Right arm weakness proximally, improved to 4/5 in abduction, strength approximately 3/5 in guest relations representative strength when compared to left. Reflexes mildly hyperreflexic on left arm over right arm as right arm is hyporeflexive. Lower extremities appear symmetrical and reflexes, DTRs. Sensation is still grossly intact in upper and lower extremities. Finger nose to finger fairly compensated at this time with mild deviation to finger touch, difficulty in right hand to fine motor movements, still fairly within normal limits in the left hand. Difficulty saying terms such as if, ands, or buts, and has difficulty with swallow function at bedside. PSYCH: Appropriate mood and affect. CT, probable acute to subacute 2.7 x 3.2 CVA, left posterior parietal watershed zone, indeterminate age although possibly acute to subacute CVA, superior left frontal lobe cortex measuring 16 mm and small old lacunar infarcts, both basal ganglia, small mucous retention cyst and maxillary cyst. Labs: Urinalysis, moderate blood with RBC of 22, CMP grossly within normal limits, glucose 100, and troponin is negative. CBC: WBC count 7.9, H and H 12.6 and 38.5, platelets 239, INR 1.1. ASSESSMENT AND PLAN: 1. Subacute stroke. 2. Hypertension. 3. Benign prostatic hypertrophy. 4. Gastroesophageal reflux disease. 5. Incomplete left bundle branch block. PLAN: 1. For subacute stroke, stroke protocol initiated, non tPA, due to the timeline, aspirin, History And Physical [address] [address] NAME: SRAVANTHI HIDALGO : 56 STATUS : ADM IN PAT#: [id number] AGE: 56 ADM/REG DATE : 08/20/16 MR#: [id number] REPORT SERV DATE: 08/20/16 DICTATED BY: WENDI HOPE DATE: 08/20/16 REPORT STATUS : Draft TRANSCRIBED BY: MODL DATE: 08/20/16 statin, MRI, MRA, echo ordered, and NIH score approximately 9. Blood pressure close monitoring and monitoring on telemetry. 2. Hypertension, on CARMINE inhibitor p.r.n. Permissive elevation secondary to acute stroke. 3. BPH. Continue home medications. 4. GERD. PPI. 5. Incomplete left bundle branch block. Follow ECGs. Troponins currently negative. No acute chest pain. Order echocardiogram and left bundle branch block has been noted in EKG in 2014. We will monitor. The patient denies any cardiac history. All questions answered to the patient. We will need PT, OT, ST evaluations, Neuro evaluation, echocardiogram, MRI, MRA, and close monitoring of blood pressure. DDN/MODL Wendi Hope MD / [id number] CC: Corey Randhawa M.D.
--- NOTE | ~2016-08-19 | OP ---
Record Of Operation [facility] [address] [place]. [address] NAME: SRAVANTHI HIDALGO : 56 STATUS : ADM IN PAT#: [id number] AGE: 56 ADM/REG DATE : 08/20/16 MR#: [id number] REPORT SERV DATE: 08/27/16 DICTATED BY: RADHA HERNANDEZ JR. DATE: 08/26/16 REPORT STATUS : Draft TRANSCRIBED BY: MODL DATE: 08/26/16 DATE OF PROCEDURE: 08/26/2016 SURGEON: Radha Hernandez M.D. AUT[employer] SPINNING LATHE SETTER: Steven Neri. PROCEDURE: Laparoscopy and then placement of feeding jejunostomy tube placement. PREOPERATIVE DIAGNOSIS: Aspiration risk and swallowing dysfunction. POSTOPERATIVE DIAGNOSIS: Aspiration risk and swallowing dysfunction. ANESTHESIA: General. INDICATION: This patient has developed swallowing dysfunction and aspiration risk after neurologic damage. Attempts were made to place a percutaneous endoscopic gastrostomy; however, this was not possible in view of the location of the stomach, and therefore, a surgical/laparoscopic approach was indicated. FINDINGS: On laparoscopic exam of his abdomen, the stomach was identified and attempts were made actually initially to place a laparoscopic G-tube. T fastener was placed into the gastric lumen; however, this was felt to be too tight when this was pulled out to the abdominal wall. Therefore, it was elected to abort this approach and place a feeding J, as this would be a safer avenue. DESCRIPTION OF PROCEDURE: With adequate general anesthesia, the patient was placed in supine position. The abdomen was prepped and draped sterilely. 0.5% Marcaine was used for local infiltration of all trocar sites. A supraumbilical incision was made. The dissection was carried down sharply through the subcutaneous tissues. The fascia and perineum were opened. The peritoneal cavity was entered. A balloon-tipped trocar was introduced. The abdomen was insufflated with CO2. The laparoscope was introduced. Additional 5-mm trocar was placed in the right midabdomen. The initial T fastener was placed as noted. Then, it was not felt this was satisfactory, therefore, the trocar was removed. The supraumbilical incision was enlarged and the peritoneal cavity entered directly. The defect was cut and the area of the stomach was oversewn with suture of 3-0 silk. Then, the proximal jejunum was identified. A pursestring suture of 3-0 silk was placed. Jejunotomy was made and a 16-Martiniquais G-tube was placed into the bowel lumen. It was brought through the left abdominal wall, where the tube was secured at the exit site with 2-0 nylon suture and the jejunum was sewed to the overlying perineum with suture of 3-0 silk. Then, the midline incision was closed with fascial 0 PDS, subcutaneous Vicryl, and dermal Monocryl. Sterile dressings were applied. The patient left the operating room in satisfactory condition. ESTIMATED BLOOD LOSS: 10 mL. Record Of Operation [facility] [address] [place]. [address] NAME: SRAVANTHI HIDALGO : 56 STATUS : ADM IN [facility]#: [id number] AGE: 56 ADM/REG DATE : 08/20/16 MR#: [id number] REPORT SERV DATE: 08/27/16 DICTATED BY: RADHA HERNANDEZ JR. DATE: 08/26/16 REPORT STATUS : Draft TRANSCRIBED BY: ALESSIA DATE: 08/26/16 SUJATA/ALESSIA Radha Hernandez Jr., M.D. / [id number] CC: Javier Alonso MD
--- NOTE | ~2016-08-19 | IDS ---
Interim Discharge Summary [facility] [address] [place]. 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 SECONDARY DIAGNOSES: Chronic systolic congestive heart failure with history of wide-complex tachycardia; iron deficiency and B12 deficiency anemia, status post dysphagia; hypertension; hyperlipidemia with history of elevated liver function enzymes with high-dose statin therapy. HISTORY OF PRESENT ILLNESS: Please see Dr. Christopher's dictation, 08/20/2016. Please see subsequent interim summaries by Kassidy Rodrigues, 08/26/2016; Dr. Oreilly, 09/03/2016, Dr. Mcneal, 09/09/2016, Dr. Oreilly again on 09/16/2016, Dr. Mcneal again on 09/23/2016, Dr. Oreilly again on 09/30/2016, and Dr. Mcneal again on 10/07/2016. HOSPITAL COURSE: Over the past week, the patient's liver function enzymes resolved off the statin. He was started again at a lower dose with continued normal liver function enzymes. Repeat swallow test was passed. Arrangements were made to have his feeding tube pulled. He was optimized on his CHF therapy including getting beta-blockade up to heart rate in the 60s on Toprol-XL 100 mg daily. Followup ejection fraction did show up to 40%, which was borderline for AICD. He was placed back on telemetry to ensure there are no further tachyarrhythmic events to occur. In the meanwhile, the biggest news was that he was approved for disability. However, this was still 10 care pending and so placement remained an issue. Dr. England will pick remover this patient tomorrow. NICKI/ALESSIA Suma Saenz M.D. / [id number] CC: Suma Saenz M.D.
[~2016-08-19 20:30] MED LIST: FLOMAX4 PO; HYDROCHLOROT25 MG PO; LISINOPRIL40 MG PO; NEUR300 PO; NORCO1 TAB PO; PROSCAR5 PO; ZANAFLEX 4 MG TA4 MG PO; ZOL100 PO
[2016-08-19 20:55] LABS: BASOPHILS 0.3 %; BASOPHILS ABSOLUTE 0.02 10/3/uL (0.0-0.16); EOSINOPHILS 1.9 %; EOSINOPHILS ABSOLUTE 0.15 10/3/uL (0.0-0.53); HEMATOCRIT 38.5 % (40.0-51.0); HEMOGLOBIN 12.6 g/dL (13.6-17.8); IMMATURE GRANULOCYTES 0.1 %; IMMATURE GRANULOCYTES ABSOLUTE 0.01 10/3/uL (0.0-0.11); LYMPHOCYTES 20.1 %; LYMPHOCYTES ABSOLUTE 1.58 10/3/uL (0.67-4.30); MANUAL DIFF NO %; MEAN CORPUS HGB CONC 32.7 g/dL (32.0-36.0); MEAN CORPUSCULAR HEMOGLOB 25.7 pg (26.0-34.0); MEAN CORPUSCULAR VOLUME 78.4 fL (80-100); MEAN PLATELET VOLUME 9.7 fL (9.2-13.0); MONOCYTES 11.7 %; MONOCYTES ABSOLUTE 0.92 10/3/uL (0.21-1.20); NEUTROPHILS 65.9 %; NEUTROPHILS ABSOLUTE 5.19 10/3/uL (2.02-8.40); PLATELET COUNT 239 10/3/uL (150-400); RBC DISTRIBUTION WIDTH 15.5 % (12.0-16.0); RED CELL COUNT 4.91 10/6/uL (4.7-6.1); WHITE BLOOD CELLS 7.9 10/3/uL (4.5-10.5)
[2016-08-19 21:02] LABS: INTERNATIONAL NORMAL RATI 1.1 UNITS (-); PARTIAL THROMBO TIME 30.4 SEC (22.5-37.2); PROTIME (NOT ORD) 14.3 SEC (12.0-14.5)
[2016-08-19 21:13] LABS: ALBUMIN 3.6 G/DL (3.5-5.0); ALKALINE PHOSPHATASE 71 U/L (45-117); BUN (BLOOD UREA NITROGEN) 20 MG/DL (6-23); CALCIUM, SERUM 8.6 MG/DL (8.5-10.4); CHLORIDE, SERUM 108 MMOL/L (96-112); CO2 (CARBON DIOXIDE) 25 MMOL/L (24-34); CREATININE 1.12 MG/DL (0.70-1.30); GFR AFRICAN AMERICAN 83 ML/MIN (>=60); GFR NON AFRICAN AMERICAN 72 ML/MIN (>=60); GLOBULIN 3.5 G/DL (2.5-4.1); GLUCOSE, SERUM 100 MG/DL (60-99); POTASSIUM, SERUM 3.7 MMOL/L (3.5-5.3); SGOT(AST) 19 U/L (5-40); SGPT(ALT) 29 U/L (5-65); SODIUM, SERUM 143 MMOL/L (135-148); TOTAL BILIRUBIN 0.8 MG/DL (0-1.2); TOTAL PROTEIN 7.1 G/DL (6.0-8.5); TROPONIN I 0.02 NG/ML (<0.05)
[2016-08-19 22:58] LABS: ASCORBIC ACID (UR NOT ORDER) NEG (NEG); BILIRUBIN, URINE NEGATIVE (NEG); ER URINALYSIS TAT 0 Hrs 32 Mins; KETONE, URINE TRACE MG/DL (NEG); LEUKOCYTE ESTERASE(NOT OR NEG (NEG); NITRITE (URINE) NEG (NEG); WBC (NOT ORDERED) (RFLEX) < 1 (0-5)
[2016-08-20] MEDS ORDERED: FLOMAX4 PO (00:30)
[2016-08-20] MEDS ORDERED: KAPIDEX60 MG PO (00:30)
[2016-08-20] MEDS ORDERED: KDUR20 PO (00:30)
[2016-08-20] MEDS ORDERED: LISINOPRIL40 MG PO (00:30)
[2016-08-20] MEDS ORDERED: PROSCAR5 PO (00:31)
[2016-08-20] MEDS ORDERED: ZOL100 PO (00:31)
[2016-08-20 06:52] LABS: TROPONIN I 0.03 NG/ML (<0.05); ULTRASENSITIVE TSH 2.18 MCIU/ML (0.358-3.740)
[2016-08-20 07:04] LABS: B NATRIURETIC PEPTIDE (BNP) 503.3 PG/ML (< 100.0)
[2016-08-20 09:23] LABS: ALLENS TEST Pos; BE (BASE EXCESS) -0.5 MEQ/L (0 +/- 2.5); CARBOXYHEMOGLOBIN 0.6 % (0-3); DEVICE NC; HCO3 (ACTUAL BICARBONATE) 23.8 MEQ/L (23-27); HEMOBLOGIN CONTENT 13.1 G/DL (14-18); INSTRUMENT SERIAL # 11843; METHEMOGLOBIN 0.3 % (0-3); O2 CONTENT 17.9 VOL% (18-24); PCO2 (CO2 TENSION) 38 MMHG (35-45); PO2 (O2 TENSION) 109 MMHG (79-93); SAMPLE Arterial; pH 7.41 (7.37-7.43)
[2016-08-20 11:43] LABS: ALBUMIN 3.6 G/DL (3.5-5.0); DIRECT BILIRUBIN 0.2 MG/DL (0.0-0.4); INDIRECT BILIRUBIN(NOT ORDER) 0.8 MG/DL (0.1-0.9); TOTAL PROTEIN 7.2 G/DL (6.0-8.5)
[2016-08-20 11:44] LABS: FOLATE 9.1 NG/ML (>5.2)
[2016-08-20 12:43] LABS: GLYCOHEMOGLOBIN (HbA1c) 5.4 % (4.7-6.1)
[2016-08-21 06:57] LABS: BASOPHILS 0.1 %; BASOPHILS ABSOLUTE 0.01 10/3/uL (0.0-0.16); EOSINOPHILS 1.4 %; HEMATOCRIT 39.5 % (40.0-51.0); HEMOGLOBIN 12.8 g/dL (13.6-17.8); IMMATURE GRANULOCYTES 0.1 %; IMMATURE GRANULOCYTES ABSOLUTE 0.01 10/3/uL (0.0-0.11); LYMPHOCYTES 16.4 %; LYMPHOCYTES ABSOLUTE 1.13 10/3/uL (0.67-4.30); MEAN CORPUS HGB CONC 32.4 g/dL (32.0-36.0); MEAN CORPUSCULAR VOLUME 80.1 fL (80-100); MEAN PLATELET VOLUME 10.1 fL (9.2-13.0); MONOCYTES 10.9 %; MONOCYTES ABSOLUTE 0.75 10/3/uL (0.21-1.20); NEUTROPHILS 71.1 %; PLATELET COUNT 226 10/3/uL (150-400); RBC DISTRIBUTION WIDTH 15.4 % (12.0-16.0); RED CELL COUNT 4.93 10/6/uL (4.7-6.1); WHITE BLOOD CELLS 6.9 10/3/uL (4.5-10.5)
[2016-08-21 06:59] LABS: MANUAL DIFF NO %
[2016-08-21 07:12] LABS: BUN (BLOOD UREA NITROGEN) 17 MG/DL (6-23); CALCIUM, SERUM 8.8 MG/DL (8.5-10.4); CHLORIDE, SERUM 105 MMOL/L (96-112); CO2 (CARBON DIOXIDE) 23 MMOL/L (24-34); GFR AFRICAN AMERICAN 96 ML/MIN (>=60); GFR NON AFRICAN AMERICAN 83 ML/MIN (>=60); GLUCOSE, SERUM 91 MG/DL (60-99); POTASSIUM, SERUM 3.7 MMOL/L (3.5-5.3); SODIUM, SERUM 141 MMOL/L (135-148)
[2016-08-22 06:36] LABS: BASOPHILS 0.1 %; BASOPHILS ABSOLUTE 0.01 10/3/uL (0.0-0.16); EOSINOPHILS 0.7 %; EOSINOPHILS ABSOLUTE 0.05 10/3/uL (0.0-0.53); HEMATOCRIT 40.4 % (40.0-51.0); HEMOGLOBIN 13.1 g/dL (13.6-17.8); IMMATURE GRANULOCYTES 0.3 %; IMMATURE GRANULOCYTES ABSOLUTE 0.02 10/3/uL (0.0-0.11); LYMPHOCYTES 12.6 %; LYMPHOCYTES ABSOLUTE 0.95 10/3/uL (0.67-4.30); MEAN CORPUS HGB CONC 32.4 g/dL (32.0-36.0); MEAN CORPUSCULAR HEMOGLOB 25.8 pg (26.0-34.0); MEAN CORPUSCULAR VOLUME 79.7 fL (80-100); MEAN PLATELET VOLUME 10.1 fL (9.2-13.0); MONOCYTES 9.8 %; MONOCYTES ABSOLUTE 0.74 10/3/uL (0.21-1.20); NEUTROPHILS 76.5 %; NEUTROPHILS ABSOLUTE 5.76 10/3/uL (2.02-8.40); PLATELET COUNT 238 10/3/uL (150-400); RBC DISTRIBUTION WIDTH 15.4 % (12.0-16.0); RED CELL COUNT 5.07 10/6/uL (4.7-6.1); WHITE BLOOD CELLS 7.5 10/3/uL (4.5-10.5)
[2016-08-22 06:38] LABS: MANUAL DIFF NO %
[2016-08-22 06:47] LABS: ALBUMIN 3.6 G/DL (3.5-5.0); CALCIUM, SERUM 8.7 MG/DL (8.5-10.4); CHLORIDE, SERUM 105 MMOL/L (96-112); CO2 (CARBON DIOXIDE) 22 MMOL/L (24-34); CREATININE 1.08 MG/DL (0.70-1.30); GFR AFRICAN AMERICAN 87 ML/MIN (>=60); GFR NON AFRICAN AMERICAN 75 ML/MIN (>=60); PHOSPHORUS, SERUM 3.2 MG/DL (2.5-4.5); POTASSIUM, SERUM 3.5 MMOL/L (3.5-5.3); SODIUM, SERUM 141 MMOL/L (135-148)
[2016-08-22 06:49] LABS: BUN (BLOOD UREA NITROGEN) 22 MG/DL (6-23); GLUCOSE, SERUM 110 MG/DL (60-99)
[2016-08-23 06:38] LABS: HEMATOCRIT 39.4 % (40.0-51.0); PLATELET COUNT 243 10/3/uL (150-400)
[2016-08-23 06:58] LABS: BUN (BLOOD UREA NITROGEN) 23 MG/DL (6-23); CALCIUM, SERUM 8.8 MG/DL (8.5-10.4); CHLORIDE, SERUM 105 MMOL/L (96-112); CO2 (CARBON DIOXIDE) 24 MMOL/L (24-34); CREATININE 1.04 MG/DL (0.70-1.30); GFR AFRICAN AMERICAN 91 ML/MIN (>=60); GFR NON AFRICAN AMERICAN 79 ML/MIN (>=60); GLUCOSE, SERUM 90 MG/DL (60-99); POTASSIUM, SERUM 3.9 MMOL/L (3.5-5.3); SODIUM, SERUM 139 MMOL/L (135-148)
[2016-08-24 04:58] LABS: BASOPHILS 0.4 %; BASOPHILS ABSOLUTE 0.03 10/3/uL (0.0-0.16); EOSINOPHILS 3.5 %; EOSINOPHILS ABSOLUTE 0.25 10/3/uL (0.0-0.53); HEMATOCRIT 37.7 % (40.0-51.0); HEMOGLOBIN 12.5 g/dL (13.6-17.8); LYMPHOCYTES 14.4 %; LYMPHOCYTES ABSOLUTE 1.03 10/3/uL (0.67-4.30); MEAN CORPUS HGB CONC 33.2 g/dL (32.0-36.0); MEAN CORPUSCULAR HEMOGLOB 25.9 pg (26.0-34.0); MEAN CORPUSCULAR VOLUME 78.1 fL (80-100); MEAN PLATELET VOLUME 10.5 fL (9.2-13.0); MONOCYTES 10.8 %; MONOCYTES ABSOLUTE 0.77 10/3/uL (0.21-1.20); NEUTROPHILS 70.9 %; NEUTROPHILS ABSOLUTE 5.08 10/3/uL (2.02-8.40); PLATELET COUNT 254 10/3/uL (150-400); RBC DISTRIBUTION WIDTH 15.3 % (12.0-16.0); RED CELL COUNT 4.83 10/6/uL (4.7-6.1); WHITE BLOOD CELLS 7.2 10/3/uL (4.5-10.5)
[2016-08-24 05:03] LABS: MANUAL DIFF NO %
[2016-08-24 05:17] LABS: CALCIUM, SERUM 8.5 MG/DL (8.5-10.4); CHLORIDE, SERUM 103 MMOL/L (96-112); CO2 (CARBON DIOXIDE) 21 MMOL/L (24-34); CREATININE 0.98 MG/DL (0.70-1.30); GFR AFRICAN AMERICAN 98 ML/MIN (>=60); GFR NON AFRICAN AMERICAN 85 ML/MIN (>=60); GLUCOSE, SERUM 93 MG/DL (60-99); POTASSIUM, SERUM 3.9 MMOL/L (3.5-5.3); SODIUM, SERUM 138 MMOL/L (135-148)
[2016-08-24 05:21] LABS: BUN (BLOOD UREA NITROGEN) 17 MG/DL (6-23)
[2016-08-25 06:40] LABS: HEMATOCRIT 40.5 % (40.0-51.0); HEMOGLOBIN 13.4 g/dL (13.6-17.8); MEAN CORPUS HGB CONC 33.1 g/dL (32.0-36.0); MEAN CORPUSCULAR HEMOGLOB 26.3 pg (26.0-34.0); MEAN CORPUSCULAR VOLUME 79.6 fL (80-100); MEAN PLATELET VOLUME 10.3 fL (9.2-13.0); PLATELET COUNT 291 10/3/uL (150-400); RBC DISTRIBUTION WIDTH 15.5 % (12.0-16.0); RED CELL COUNT 5.09 10/6/uL (4.7-6.1); WHITE BLOOD CELLS 7.4 10/3/uL (4.5-10.5)
[2016-08-25 06:46] LABS: MANUAL DIFF YES %
[2016-08-25 07:11] LABS: BAND NEUTROPHILS 2 %; LYMPHOCYTES 10 %; LYMPHOCYTES ABSOLUTE (CALC) 0.74 10/3/uL (0.67-4.30); MONOCYTES 9 %; MONOCYTES ABSOLUTE (CALC) 0.67 10/3/uL (0.21-1.20); NEUTROPHILS ABSOLUTE (CALC) 5.99 10/3/uL (2.02-8.40); PLATELET ESTIMATE ADQ (ADEQUATE); RBC MORPHOLOGY NORM (NORMAL); SEGMENTED NEUTROPHIL (0) 79 %; TOTAL NUCLEATED CELLS 100
[2016-08-25 07:35] LABS: BUN (BLOOD UREA NITROGEN) 16 MG/DL (6-23); CALCIUM, SERUM 9.1 MG/DL (8.5-10.4); CHLORIDE, SERUM 103 MMOL/L (96-112); CO2 (CARBON DIOXIDE) 20 MMOL/L (24-34); CREATININE 0.88 MG/DL (0.70-1.30); GFR AFRICAN AMERICAN 110 ML/MIN (>=60); GFR NON AFRICAN AMERICAN 95 ML/MIN (>=60); GLUCOSE, SERUM 100 MG/DL (60-99); POTASSIUM, SERUM 4.2 MMOL/L (3.5-5.3); SODIUM, SERUM 135 MMOL/L (135-148)
[2016-08-26 06:00] LABS: BASOPHILS 0.7 %; BASOPHILS ABSOLUTE 0.04 10/3/uL (0.0-0.16); EOSINOPHILS 8.5 %; EOSINOPHILS ABSOLUTE 0.49 10/3/uL (0.0-0.53); HEMATOCRIT 39.9 % (40.0-51.0); LYMPHOCYTES 20.7 %; MEAN CORPUS HGB CONC 32.6 g/dL (32.0-36.0); MEAN CORPUSCULAR HEMOGLOB 26.1 pg (26.0-34.0); MEAN CORPUSCULAR VOLUME 80.1 fL (80-100); MONOCYTES 10.4 %; NEUTROPHILS 59.7 %; NEUTROPHILS ABSOLUTE 3.46 10/3/uL (2.02-8.40); PLATELET COUNT 218 10/3/uL (150-400); RBC DISTRIBUTION WIDTH 15.7 % (12.0-16.0); RED CELL COUNT 4.98 10/6/uL (4.7-6.1); WHITE BLOOD CELLS 5.8 10/3/uL (4.5-10.5)
[2016-08-26 06:01] LABS: INTERNATIONAL NORMAL RATI 1.2 UNITS (-); MANUAL DIFF NO %; PROTIME (NOT ORD) 14.7 SEC (12.0-14.5)
[2016-08-26 06:15] LABS: BUN (BLOOD UREA NITROGEN) 15 MG/DL (6-23); CALCIUM, SERUM 8.8 MG/DL (8.5-10.4); CHLORIDE, SERUM 104 MMOL/L (96-112); CO2 (CARBON DIOXIDE) 24 MMOL/L (24-34); CREATININE 0.99 MG/DL (0.70-1.30); GFR AFRICAN AMERICAN 97 ML/MIN (>=60); GFR NON AFRICAN AMERICAN 84 ML/MIN (>=60); POTASSIUM, SERUM 3.8 MMOL/L (3.5-5.3); SODIUM, SERUM 137 MMOL/L (135-148)
[2016-08-26 06:16] LABS: GLUCOSE, SERUM 76 MG/DL (60-99)
[2016-08-27 07:23] LABS: BASOPHILS 0 %; EOSINOPHILS 0 %; HEMATOCRIT 39.5 % (40.0-51.0); HEMOGLOBIN 12.8 g/dL (13.6-17.8); IMMATURE GRANULOCYTES 0.2 %; IMMATURE GRANULOCYTES ABSOLUTE 0.02 10/3/uL (0.0-0.11); LYMPHOCYTES 5.2 %; LYMPHOCYTES ABSOLUTE 0.59 10/3/uL (0.67-4.30); MEAN CORPUS HGB CONC 32.4 g/dL (32.0-36.0); MEAN CORPUSCULAR HEMOGLOB 25.4 pg (26.0-34.0); MEAN CORPUSCULAR VOLUME 78.4 fL (80-100); MEAN PLATELET VOLUME 10.1 fL (9.2-13.0); MONOCYTES 8.6 %; MONOCYTES ABSOLUTE 0.97 10/3/uL (0.21-1.20); NEUTROPHILS ABSOLUTE 9.75 10/3/uL (2.02-8.40); RED CELL COUNT 5.04 10/6/uL (4.7-6.1)
[2016-08-27 07:28] LABS: MANUAL DIFF NO %; PLATELET COUNT 319 10/3/uL (150-400); WHITE BLOOD CELLS 11.3 10/3/uL (4.5-10.5)
[2016-08-27 07:31] LABS: BUN (BLOOD UREA NITROGEN) 14 MG/DL (6-23); CALCIUM, SERUM 8.4 MG/DL (8.5-10.4); CHLORIDE, SERUM 105 MMOL/L (96-112); CO2 (CARBON DIOXIDE) 21 MMOL/L (24-34); CREATININE 0.98 MG/DL (0.70-1.30); GFR AFRICAN AMERICAN 98 ML/MIN (>=60); GFR NON AFRICAN AMERICAN 85 ML/MIN (>=60); GLUCOSE, SERUM 159 MG/DL (60-99); POTASSIUM, SERUM 4.2 MMOL/L (3.5-5.3); SODIUM, SERUM 137 MMOL/L (135-148)
[2016-08-28 00:16] LABS: BUN (BLOOD UREA NITROGEN) 13 MG/DL (6-23); CALCIUM, SERUM 8.3 MG/DL (8.5-10.4); CHLORIDE, SERUM 106 MMOL/L (96-112); CREATININE 1.02 MG/DL (0.70-1.30); GFR AFRICAN AMERICAN 93 ML/MIN (>=60); GFR NON AFRICAN AMERICAN 81 ML/MIN (>=60); SODIUM, SERUM 140 MMOL/L (135-148)
[2016-08-28 00:17] LABS: CO2 (CARBON DIOXIDE) 26 MMOL/L (24-34); GLUCOSE, SERUM 104 MG/DL (60-99)
[2016-08-29 06:43] LABS: BASOPHILS 0.2 %; BASOPHILS ABSOLUTE 0.02 10/3/uL (0.0-0.16); EOSINOPHILS 1.2 %; EOSINOPHILS ABSOLUTE 0.11 10/3/uL (0.0-0.53); HEMATOCRIT 35.9 % (40.0-51.0); HEMOGLOBIN 11.6 g/dL (13.6-17.8); IMMATURE GRANULOCYTES 0.1 %; IMMATURE GRANULOCYTES ABSOLUTE 0.01 10/3/uL (0.0-0.11); LYMPHOCYTES 12.3 %; LYMPHOCYTES ABSOLUTE 1.11 10/3/uL (0.67-4.30); MEAN CORPUS HGB CONC 32.3 g/dL (32.0-36.0); MEAN CORPUSCULAR HEMOGLOB 25.4 pg (26.0-34.0); MEAN CORPUSCULAR VOLUME 78.6 fL (80-100); MONOCYTES 8.7 %; MONOCYTES ABSOLUTE 0.79 10/3/uL (0.21-1.20); NEUTROPHILS 77.5 %; NEUTROPHILS ABSOLUTE 7.01 10/3/uL (2.02-8.40); PLATELET COUNT 245 10/3/uL (150-400); RBC DISTRIBUTION WIDTH 16.4 % (12.0-16.0); RED CELL COUNT 4.57 10/6/uL (4.7-6.1); WHITE BLOOD CELLS 9.1 10/3/uL (4.5-10.5)
[2016-08-29 06:52] LABS: BUN (BLOOD UREA NITROGEN) 16 MG/DL (6-23); CALCIUM, SERUM 8.2 MG/DL (8.5-10.4); CHLORIDE, SERUM 104 MMOL/L (96-112); CO2 (CARBON DIOXIDE) 25 MMOL/L (24-34); CREATININE 0.97 MG/DL (0.70-1.30); GFR AFRICAN AMERICAN 99 ML/MIN (>=60); GFR NON AFRICAN AMERICAN 86 ML/MIN (>=60); GLUCOSE, SERUM 126 MG/DL (60-99); SODIUM, SERUM 138 MMOL/L (135-148)
[2016-08-29 06:54] LABS: MANUAL DIFF NO %
[2016-08-30 06:07] LABS: BUN (BLOOD UREA NITROGEN) 16 MG/DL (6-23); CALCIUM, SERUM 8.5 MG/DL (8.5-10.4); CHLORIDE, SERUM 104 MMOL/L (96-112); CO2 (CARBON DIOXIDE) 23 MMOL/L (24-34); CREATININE 0.86 MG/DL (0.70-1.30); GFR AFRICAN AMERICAN 111 ML/MIN (>=60); GFR NON AFRICAN AMERICAN 96 ML/MIN (>=60); GLUCOSE, SERUM 134 MG/DL (60-99); SODIUM, SERUM 137 MMOL/L (135-148)
[2016-09-02 05:40] LABS: BASOPHILS 0.4 %; BASOPHILS ABSOLUTE 0.03 10/3/uL (0.0-0.16); EOSINOPHILS 4.6 %; EOSINOPHILS ABSOLUTE 0.35 10/3/uL (0.0-0.53); HEMATOCRIT 37.2 % (40.0-51.0); HEMOGLOBIN 11.9 g/dL (13.6-17.8); IMMATURE GRANULOCYTES 0.1 %; IMMATURE GRANULOCYTES ABSOLUTE 0.01 10/3/uL (0.0-0.11); LYMPHOCYTES 16.3 %; LYMPHOCYTES ABSOLUTE 1.25 10/3/uL (0.67-4.30); MEAN CORPUSCULAR HEMOGLOB 25.8 pg (26.0-34.0); MEAN CORPUSCULAR VOLUME 80.5 fL (80-100); MEAN PLATELET VOLUME 10.2 fL (9.2-13.0); MONOCYTES ABSOLUTE 0.92 10/3/uL (0.21-1.20); NEUTROPHILS 66.6 %; NEUTROPHILS ABSOLUTE 5.12 10/3/uL (2.02-8.40); PLATELET COUNT 259 10/3/uL (150-400); RBC DISTRIBUTION WIDTH 15.9 % (12.0-16.0); RED CELL COUNT 4.62 10/6/uL (4.7-6.1); WHITE BLOOD CELLS 7.7 10/3/uL (4.5-10.5)
[2016-09-02 05:43] LABS: MANUAL DIFF NO %
[2016-09-02 05:51] LABS: BUN (BLOOD UREA NITROGEN) 14 MG/DL (6-23); CALCIUM, SERUM 8.3 MG/DL (8.5-10.4); CHLORIDE, SERUM 102 MMOL/L (96-112); CREATININE 0.93 MG/DL (0.70-1.30); GFR AFRICAN AMERICAN 105 ML/MIN (>=60); GFR NON AFRICAN AMERICAN 90 ML/MIN (>=60); GLUCOSE, SERUM 123 MG/DL (60-99); POTASSIUM, SERUM 4.1 MMOL/L (3.5-5.3); SODIUM, SERUM 140 MMOL/L (135-148)
[2016-09-02 05:52] LABS: CO2 (CARBON DIOXIDE) 30 MMOL/L (24-34)
[2016-09-03 15:12] LABS: % IRON SAT 13 % (20-50); CALCIUM, SERUM 8.7 MG/DL (8.5-10.4); CHLORIDE, SERUM 103 MMOL/L (96-112); CO2 (CARBON DIOXIDE) 28 MMOL/L (24-34); CREATININE 1.02 MG/DL (0.70-1.30); FERRITIN 52 NG/ML (26-388); GFR AFRICAN AMERICAN 93 ML/MIN (>=60); GFR NON AFRICAN AMERICAN 81 ML/MIN (>=60); GLUCOSE, SERUM 120 MG/DL (60-99); IRON BINDING CAPACITY 292 MCG/DL (250-450); IRON, SERUM 39 MCG/DL (35-150); POTASSIUM, SERUM 4.1 MMOL/L (3.5-5.3); SODIUM, SERUM 140 MMOL/L (135-148)
[2016-09-03 15:13] LABS: BUN (BLOOD UREA NITROGEN) 18 MG/DL (6-23)
[2016-09-05 08:51] LABS: BUN (BLOOD UREA NITROGEN) 19 MG/DL (6-23); CALCIUM, SERUM 8.6 MG/DL (8.5-10.4); CHLORIDE, SERUM 103 MMOL/L (96-112); CO2 (CARBON DIOXIDE) 27 MMOL/L (24-34); CREATININE 0.98 MG/DL (0.70-1.30); GFR AFRICAN AMERICAN 98 ML/MIN (>=60); GFR NON AFRICAN AMERICAN 85 ML/MIN (>=60); GLUCOSE, SERUM 102 MG/DL (60-99); POTASSIUM, SERUM 3.9 MMOL/L (3.5-5.3); SODIUM, SERUM 140 MMOL/L (135-148)
[2016-09-07 07:47] LABS: BASOPHILS 0.2 %; BASOPHILS ABSOLUTE 0.02 10/3/uL (0.0-0.16); EOSINOPHILS 3.5 %; EOSINOPHILS ABSOLUTE 0.32 10/3/uL (0.0-0.53); HEMOGLOBIN 13.4 g/dL (13.6-17.8); IMMATURE GRANULOCYTES 0.1 %; IMMATURE GRANULOCYTES ABSOLUTE 0.01 10/3/uL (0.0-0.11); LYMPHOCYTES 17.8 %; LYMPHOCYTES ABSOLUTE 1.63 10/3/uL (0.67-4.30); MEAN CORPUS HGB CONC 32.7 g/dL (32.0-36.0); MEAN CORPUSCULAR HEMOGLOB 26.3 pg (26.0-34.0); MEAN CORPUSCULAR VOLUME 80.4 fL (80-100); MEAN PLATELET VOLUME 10.6 fL (9.2-13.0); MONOCYTES 11.1 %; MONOCYTES ABSOLUTE 1.02 10/3/uL (0.21-1.20); NEUTROPHILS 67.3 %; NEUTROPHILS ABSOLUTE 6.16 10/3/uL (2.02-8.40); PLATELET COUNT 268 10/3/uL (150-400); RBC DISTRIBUTION WIDTH 15.8 % (12.0-16.0); WHITE BLOOD CELLS 9.2 10/3/uL (4.5-10.5)
[2016-09-07 07:50] LABS: MANUAL DIFF NO %
[2016-09-07 08:05] LABS: BUN (BLOOD UREA NITROGEN) 20 MG/DL (6-23); CALCIUM, SERUM 8.5 MG/DL (8.5-10.4); CHLORIDE, SERUM 103 MMOL/L (96-112); CO2 (CARBON DIOXIDE) 26 MMOL/L (24-34); CREATININE 0.98 MG/DL (0.70-1.30); GFR AFRICAN AMERICAN 98 ML/MIN (>=60); GFR NON AFRICAN AMERICAN 85 ML/MIN (>=60); GLUCOSE, SERUM 119 MG/DL (60-99); POTASSIUM, SERUM 3.8 MMOL/L (3.5-5.3); SODIUM, SERUM 140 MMOL/L (135-148)
[2016-09-11 05:18] LABS: BASOPHILS 0.2 %; BASOPHILS ABSOLUTE 0.01 10/3/uL (0.0-0.16); EOSINOPHILS ABSOLUTE 0.33 10/3/uL (0.0-0.53); HEMATOCRIT 39.4 % (40.0-51.0); HEMOGLOBIN 12.9 g/dL (13.6-17.8); IMMATURE GRANULOCYTES 0.5 %; IMMATURE GRANULOCYTES ABSOLUTE 0.03 10/3/uL (0.0-0.11); LYMPHOCYTES 19.8 %; LYMPHOCYTES ABSOLUTE 1.31 10/3/uL (0.67-4.30); MEAN CORPUS HGB CONC 32.7 g/dL (32.0-36.0); MEAN CORPUSCULAR HEMOGLOB 26.7 pg (26.0-34.0); MEAN CORPUSCULAR VOLUME 81.6 fL (80-100); MEAN PLATELET VOLUME 10.7 fL (9.2-13.0); MONOCYTES 10.3 %; MONOCYTES ABSOLUTE 0.68 10/3/uL (0.21-1.20); NEUTROPHILS 64.2 %; NEUTROPHILS ABSOLUTE 4.24 10/3/uL (2.02-8.40); PLATELET COUNT 207 10/3/uL (150-400); RED CELL COUNT 4.83 10/6/uL (4.7-6.1); WHITE BLOOD CELLS 6.6 10/3/uL (4.5-10.5)
[2016-09-11 05:21] LABS: MANUAL DIFF NO %
[2016-09-11 05:24] LABS: BUN (BLOOD UREA NITROGEN) 18 MG/DL (6-23); CALCIUM, SERUM 8.6 MG/DL (8.5-10.4); CHLORIDE, SERUM 105 MMOL/L (96-112); CO2 (CARBON DIOXIDE) 28 MMOL/L (24-34); CREATININE 1.03 MG/DL (0.70-1.30); GFR AFRICAN AMERICAN 92 ML/MIN (>=60); GFR NON AFRICAN AMERICAN 80 ML/MIN (>=60); GLUCOSE, SERUM 115 MG/DL (60-99); POTASSIUM, SERUM 3.4 MMOL/L (3.5-5.3); SODIUM, SERUM 142 MMOL/L (135-148)
[2016-09-14 05:37] LABS: BUN (BLOOD UREA NITROGEN) 20 MG/DL (6-23); CALCIUM, SERUM 8.9 MG/DL (8.5-10.4); CHLORIDE, SERUM 106 MMOL/L (96-112); CO2 (CARBON DIOXIDE) 26 MMOL/L (24-34); CREATININE 0.89 MG/DL (0.70-1.30); GFR AFRICAN AMERICAN 109 ML/MIN (>=60); GFR NON AFRICAN AMERICAN 94 ML/MIN (>=60); GLUCOSE, SERUM 123 MG/DL (60-99); PHOSPHORUS, SERUM 3.7 MG/DL (2.5-4.5); POTASSIUM, SERUM 3.8 MMOL/L (3.5-5.3); SODIUM, SERUM 142 MMOL/L (135-148)
[2016-09-17 08:24] LABS: BASOPHILS 0.3 %; BASOPHILS ABSOLUTE 0.02 10/3/uL (0.0-0.16); EOSINOPHILS 3.3 %; HEMOGLOBIN 13.5 g/dL (13.6-17.8); IMMATURE GRANULOCYTES 0.2 %; IMMATURE GRANULOCYTES ABSOLUTE 0.01 10/3/uL (0.0-0.11); LYMPHOCYTES 23.7 %; LYMPHOCYTES ABSOLUTE 1.45 10/3/uL (0.67-4.30); MEAN CORPUS HGB CONC 33.8 g/dL (32.0-36.0); MEAN CORPUSCULAR HEMOGLOB 26.9 pg (26.0-34.0); MEAN CORPUSCULAR VOLUME 79.8 fL (80-100); MEAN PLATELET VOLUME 10.2 fL (9.2-13.0); MONOCYTES 11.7 %; MONOCYTES ABSOLUTE 0.72 10/3/uL (0.21-1.20); NEUTROPHILS 60.8 %; NEUTROPHILS ABSOLUTE 3.73 10/3/uL (2.02-8.40); PLATELET COUNT 176 10/3/uL (150-400); RBC DISTRIBUTION WIDTH 16.5 % (12.0-16.0); RED CELL COUNT 5.01 10/6/uL (4.7-6.1); WHITE BLOOD CELLS 6.1 10/3/uL (4.5-10.5)
[2016-09-17 08:25] LABS: MANUAL DIFF NO %
[2016-09-17 08:38] LABS: BUN (BLOOD UREA NITROGEN) 17 MG/DL (6-23); CHLORIDE, SERUM 105 MMOL/L (96-112); CO2 (CARBON DIOXIDE) 26 MMOL/L (24-34); CREATININE 0.88 MG/DL (0.70-1.30); GFR AFRICAN AMERICAN 110 ML/MIN (>=60); GFR NON AFRICAN AMERICAN 95 ML/MIN (>=60); POTASSIUM, SERUM 3.9 MMOL/L (3.5-5.3); SODIUM, SERUM 141 MMOL/L (135-148)
[2016-09-17 08:43] LABS: GLUCOSE, SERUM 90 MG/DL (60-99)
[2016-09-27 05:17] LABS: BASOPHILS 0.2 %; BASOPHILS ABSOLUTE 0.02 10/3/uL (0.0-0.16); EOSINOPHILS 0.6 %; EOSINOPHILS ABSOLUTE 0.06 10/3/uL (0.0-0.53); IMMATURE GRANULOCYTES 0.3 %; IMMATURE GRANULOCYTES ABSOLUTE 0.03 10/3/uL (0.0-0.11); LYMPHOCYTES 17.2 %; LYMPHOCYTES ABSOLUTE 1.71 10/3/uL (0.67-4.30); MEAN CORPUS HGB CONC 33.3 g/dL (32.0-36.0); MEAN CORPUSCULAR HEMOGLOB 27.1 pg (26.0-34.0); MEAN CORPUSCULAR VOLUME 81.4 fL (80-100); MEAN PLATELET VOLUME 10.2 fL (9.2-13.0); MONOCYTES 13.7 %; MONOCYTES ABSOLUTE 1.36 10/3/uL (0.21-1.20); NEUTROPHILS ABSOLUTE 6.77 10/3/uL (2.02-8.40); PLATELET COUNT 187 10/3/uL (150-400); RBC DISTRIBUTION WIDTH 17.3 % (12.0-16.0); RED CELL COUNT 4.42 10/6/uL (4.7-6.1)
[2016-09-27 05:18] LABS: MANUAL DIFF NO %
[2016-09-27 05:28] LABS: BUN (BLOOD UREA NITROGEN) 21 MG/DL (6-23); CALCIUM, SERUM 8.7 MG/DL (8.5-10.4); CHLORIDE, SERUM 103 MMOL/L (96-112); CO2 (CARBON DIOXIDE) 26 MMOL/L (24-34); CREATININE 0.85 MG/DL (0.70-1.30); GFR AFRICAN AMERICAN 111 ML/MIN (>=60); GFR NON AFRICAN AMERICAN 96 ML/MIN (>=60); POTASSIUM, SERUM 3.8 MMOL/L (3.5-5.3); SODIUM, SERUM 136 MMOL/L (135-148)
[2016-09-27 05:29] LABS: GLUCOSE, SERUM 137 MG/DL (60-99)
[2016-10-01 09:06] LABS: BASOPHILS 0.2 %; BASOPHILS ABSOLUTE 0.02 10/3/uL (0.0-0.16); EOSINOPHILS 9.4 %; EOSINOPHILS ABSOLUTE 0.79 10/3/uL (0.0-0.53); HEMATOCRIT 36.2 % (40.0-51.0); HEMOGLOBIN 12.1 g/dL (13.6-17.8); IMMATURE GRANULOCYTES 0.2 %; IMMATURE GRANULOCYTES ABSOLUTE 0.02 10/3/uL (0.0-0.11); LYMPHOCYTES ABSOLUTE 1.09 10/3/uL (0.67-4.30); MEAN CORPUS HGB CONC 33.4 g/dL (32.0-36.0); MEAN CORPUSCULAR HEMOGLOB 27.2 pg (26.0-34.0); MEAN CORPUSCULAR VOLUME 81.3 fL (80-100); MEAN PLATELET VOLUME 9.9 fL (9.2-13.0); MONOCYTES 8.6 %; MONOCYTES ABSOLUTE 0.72 10/3/uL (0.21-1.20); NEUTROPHILS 68.6 %; NEUTROPHILS ABSOLUTE 5.76 10/3/uL (2.02-8.40); PLATELET COUNT 243 10/3/uL (150-400); RBC DISTRIBUTION WIDTH 16.9 % (12.0-16.0); RED CELL COUNT 4.45 10/6/uL (4.7-6.1); WHITE BLOOD CELLS 8.4 10/3/uL (4.5-10.5)
[2016-10-01 09:08] LABS: MANUAL DIFF NO %
[2016-10-01 09:19] LABS: BUN (BLOOD UREA NITROGEN) 19 MG/DL (6-23); CALCIUM, SERUM 8.3 MG/DL (8.5-10.4); CHLORIDE, SERUM 102 MMOL/L (96-112); CO2 (CARBON DIOXIDE) 25 MMOL/L (24-34); CREATININE 0.91 MG/DL (0.70-1.30); GFR AFRICAN AMERICAN 107 ML/MIN (>=60); GFR NON AFRICAN AMERICAN 93 ML/MIN (>=60); GLUCOSE, SERUM 152 MG/DL (60-99); POTASSIUM, SERUM 3.6 MMOL/L (3.5-5.3); SODIUM, SERUM 137 MMOL/L (135-148)
[2016-10-06 07:23] LABS: BUN (BLOOD UREA NITROGEN) 17 MG/DL (6-23); CALCIUM, SERUM 8.6 MG/DL (8.5-10.4); CHLORIDE, SERUM 99 MMOL/L (96-112); CO2 (CARBON DIOXIDE) 27 MMOL/L (24-34); CREATININE 0.92 MG/DL (0.70-1.30); GFR AFRICAN AMERICAN 106 ML/MIN (>=60); GFR NON AFRICAN AMERICAN 91 ML/MIN (>=60); GLUCOSE, SERUM 97 MG/DL (60-99); POTASSIUM, SERUM 4.2 MMOL/L (3.5-5.3); SODIUM, SERUM 138 MMOL/L (135-148)
[2016-10-06 08:35] LABS: BASOPHILS 0.2 %; BASOPHILS ABSOLUTE 0.02 10/3/uL (0.0-0.16); EOSINOPHILS 9.7 %; EOSINOPHILS ABSOLUTE 0.84 10/3/uL (0.0-0.53); HEMATOCRIT 37.4 % (40.0-51.0); HEMOGLOBIN 12.2 g/dL (13.6-17.8); IMMATURE GRANULOCYTES 0.6 %; IMMATURE GRANULOCYTES ABSOLUTE 0.05 10/3/uL (0.0-0.11); LYMPHOCYTES 19.4 %; LYMPHOCYTES ABSOLUTE 1.68 10/3/uL (0.67-4.30); MEAN CORPUS HGB CONC 32.6 g/dL (32.0-36.0); MEAN CORPUSCULAR VOLUME 82.7 fL (80-100); MEAN PLATELET VOLUME 9.4 fL (9.2-13.0); MONOCYTES 10.7 %; MONOCYTES ABSOLUTE 0.93 10/3/uL (0.21-1.20); NEUTROPHILS 59.4 %; NEUTROPHILS ABSOLUTE 5.16 10/3/uL (2.02-8.40); PLATELET COUNT 307 10/3/uL (150-400); RBC DISTRIBUTION WIDTH 16.7 % (12.0-16.0); RED CELL COUNT 4.52 10/6/uL (4.7-6.1); WHITE BLOOD CELLS 8.7 10/3/uL (4.5-10.5)
[2016-10-06 08:37] LABS: MANUAL DIFF NO %
[2016-10-06 08:44] LABS: A/G RATIO 0.5 (0.7-1.9); ALBUMIN 2.4 G/DL (3.5-5.0); ALKALINE PHOSPHATASE 213 U/L (45-117); GLOBULIN 4.9 G/DL (2.5-4.1); SGOT(AST) 118 U/L (5-40); SGPT(ALT) 198 U/L (5-65); TOTAL BILIRUBIN 0.7 MG/DL (0-1.2); TOTAL PROTEIN 7.3 G/DL (6.0-8.5)
[2016-10-07 08:28] LABS: A/G RATIO 0.5 (0.7-1.9); ALBUMIN 2.3 G/DL (3.5-5.0); BUN (BLOOD UREA NITROGEN) 16 MG/DL (6-23); CALCIUM, SERUM 8.7 MG/DL (8.5-10.4); CHLORIDE, SERUM 102 MMOL/L (96-112); CO2 (CARBON DIOXIDE) 28 MMOL/L (24-34); CREATININE 0.86 MG/DL (0.70-1.30); GFR AFRICAN AMERICAN 111 ML/MIN (>=60); GFR NON AFRICAN AMERICAN 96 ML/MIN (>=60); GLOBULIN 4.8 G/DL (2.5-4.1); GLUCOSE, SERUM 103 MG/DL (60-99); SGOT(AST) 84 U/L (5-40); SGPT(ALT) 165 U/L (5-65); SODIUM, SERUM 138 MMOL/L (135-148); TOTAL BILIRUBIN 0.7 MG/DL (0-1.2); TOTAL PROTEIN 7.1 G/DL (6.0-8.5)
[2016-10-07 08:29] LABS: ALKALINE PHOSPHATASE 200 U/L (45-117)
[2016-10-08 04:46] LABS: BASOPHILS 0.2 %; BASOPHILS ABSOLUTE 0.02 10/3/uL (0.0-0.16); EOSINOPHILS ABSOLUTE 0.91 10/3/uL (0.0-0.53); HEMATOCRIT 37.6 % (40.0-51.0); HEMOGLOBIN 12.5 g/dL (13.6-17.8); IMMATURE GRANULOCYTES 0.5 %; IMMATURE GRANULOCYTES ABSOLUTE 0.04 10/3/uL (0.0-0.11); LYMPHOCYTES ABSOLUTE 1.82 10/3/uL (0.67-4.30); MEAN CORPUS HGB CONC 33.2 g/dL (32.0-36.0); MEAN CORPUSCULAR HEMOGLOB 27.3 pg (26.0-34.0); MEAN CORPUSCULAR VOLUME 82.1 fL (80-100); MEAN PLATELET VOLUME 9.5 fL (9.2-13.0); MONOCYTES 8.9 %; MONOCYTES ABSOLUTE 0.74 10/3/uL (0.21-1.20); NEUTROPHILS 57.4 %; NEUTROPHILS ABSOLUTE 4.75 10/3/uL (2.02-8.40); PLATELET COUNT 328 10/3/uL (150-400); RBC DISTRIBUTION WIDTH 16.5 % (12.0-16.0); RED CELL COUNT 4.58 10/6/uL (4.7-6.1); WHITE BLOOD CELLS 8.3 10/3/uL (4.5-10.5)
[2016-10-08 04:48] LABS: MANUAL DIFF NO %
[2016-10-08 05:09] LABS: A/G RATIO 0.5 (0.7-1.9); ALBUMIN 2.3 G/DL (3.5-5.0); ALKALINE PHOSPHATASE 198 U/L (45-117); CALCIUM, SERUM 8.6 MG/DL (8.5-10.4); CHLORIDE, SERUM 102 MMOL/L (96-112); CO2 (CARBON DIOXIDE) 26 MMOL/L (24-34); CREATININE 0.93 MG/DL (0.70-1.30); GFR AFRICAN AMERICAN 105 ML/MIN (>=60); GFR NON AFRICAN AMERICAN 90 ML/MIN (>=60); GLOBULIN 4.8 G/DL (2.5-4.1); GLUCOSE, SERUM 99 MG/DL (60-99); POTASSIUM, SERUM 4.2 MMOL/L (3.5-5.3); SGOT(AST) 68 U/L (5-40); SGPT(ALT) 144 U/L (5-65); SODIUM, SERUM 137 MMOL/L (135-148); TOTAL BILIRUBIN 0.6 MG/DL (0-1.2); TOTAL PROTEIN 7.1 G/DL (6.0-8.5)
[2016-10-08 05:10] LABS: BUN (BLOOD UREA NITROGEN) 20 MG/DL (6-23)
[2016-10-08 10:50] LABS: HEPATITIS B SURFACE ANTIGEN NON-REACTIVE (NON-REACT)
[2016-10-08 11:13] LABS: HEPATITIS B CORE AB IGM NON-REACTIVE (NON-REAC); HEPATITIS C ANTIBODY NON-REACTIVE (NON-REACT)
[2016-10-08 11:16] LABS: HEP A ANTIBODY IGM NON-REACTIVE (NON-REACT)
[2016-10-14 06:21] LABS: A/G RATIO 0.5 (0.7-1.9); ALBUMIN 2.2 G/DL (3.5-5.0); CALCIUM, SERUM 8.9 MG/DL (8.5-10.4); CHLORIDE, SERUM 107 MMOL/L (96-112); CO2 (CARBON DIOXIDE) 26 MMOL/L (24-34); CREATININE 0.78 MG/DL (0.70-1.30); GFR AFRICAN AMERICAN 115 ML/MIN (>=60); GFR NON AFRICAN AMERICAN 100 ML/MIN (>=60); GLOBULIN 4.2 G/DL (2.5-4.1); GLUCOSE, SERUM 100 MG/DL (60-99); POTASSIUM, SERUM 3.9 MMOL/L (3.5-5.3); SGOT(AST) 29 U/L (5-40); SGPT(ALT) 59 U/L (5-65); SODIUM, SERUM 143 MMOL/L (135-148); TOTAL BILIRUBIN 0.4 MG/DL (0-1.2); TOTAL PROTEIN 6.4 G/DL (6.0-8.5)
[2016-10-14 06:22] LABS: ALKALINE PHOSPHATASE 135 U/L (45-117); BUN (BLOOD UREA NITROGEN) 14 MG/DL (6-23)
[2016-10-18 04:40] LABS: BASOPHILS 0.2 %; BASOPHILS ABSOLUTE 0.02 10/3/uL (0.0-0.16); EOSINOPHILS 4.4 %; EOSINOPHILS ABSOLUTE 0.37 10/3/uL (0.0-0.53); HEMATOCRIT 37.1 % (40.0-51.0); HEMOGLOBIN 12.1 g/dL (13.6-17.8); IMMATURE GRANULOCYTES 0.5 %; IMMATURE GRANULOCYTES ABSOLUTE 0.04 10/3/uL (0.0-0.11); LYMPHOCYTES 28.1 %; LYMPHOCYTES ABSOLUTE 2.35 10/3/uL (0.67-4.30); MEAN CORPUS HGB CONC 32.6 g/dL (32.0-36.0); MEAN CORPUSCULAR HEMOGLOB 27.1 pg (26.0-34.0); MEAN CORPUSCULAR VOLUME 83.2 fL (80-100); MEAN PLATELET VOLUME 9.2 fL (9.2-13.0); MONOCYTES 10.1 %; MONOCYTES ABSOLUTE 0.84 10/3/uL (0.21-1.20); NEUTROPHILS 56.7 %; NEUTROPHILS ABSOLUTE 4.73 10/3/uL (2.02-8.40); PLATELET COUNT 274 10/3/uL (150-400); RBC DISTRIBUTION WIDTH 16.6 % (12.0-16.0); RED CELL COUNT 4.46 10/6/uL (4.7-6.1); WHITE BLOOD CELLS 8.4 10/3/uL (4.5-10.5)
[2016-10-18 04:50] LABS: MANUAL DIFF NO %
[2016-10-18 04:56] LABS: BUN (BLOOD UREA NITROGEN) 17 MG/DL (6-23); CALCIUM, SERUM 8.4 MG/DL (8.5-10.4); CHLORIDE, SERUM 108 MMOL/L (96-112); CO2 (CARBON DIOXIDE) 26 MMOL/L (24-34); CREATININE 0.99 MG/DL (0.70-1.30); GFR AFRICAN AMERICAN 97 ML/MIN (>=60); GFR NON AFRICAN AMERICAN 84 ML/MIN (>=60); GLUCOSE, SERUM 98 MG/DL (60-99); PHOSPHORUS, SERUM 3.4 MG/DL (2.5-4.5); POTASSIUM, SERUM 4.1 MMOL/L (3.5-5.3); SODIUM, SERUM 143 MMOL/L (135-148)
[2017-02-05] MEDS ORDERED: LIPITOR20 PO (11:31)
[2017-02-05] MEDS ORDERED: CYANO1000T PO (11:31)
[2017-02-05] MEDS ORDERED: OTC POTASSIUM PO (11:31)
[2017-02-05] MEDS ORDERED: ZOL100 PO (11:31)
[2017-02-05] MEDS ORDERED: FLOMAX4 PO (11:31)
[2017-02-05] MEDS ORDERED: KEPPRA250 PO (11:31)
[2017-02-05] MEDS ORDERED: HYT1 PO (11:32)
[2017-02-05] MEDS ORDERED: ZESTRIL40 MG PO (11:32)
== END 2016-10-25 13:11 | DRG 987 ==
LOC: ER 20:30 → 1SO 08-20 02:00
PROVIDERS: Emergency Medicine; Hospitalist; Internal Medicine; Internal Medicine Gastroenterology; Nurse Practitioner; Nurse Practitioner Family; Specialist; Student in an Organized Health Care Education/Training Program; Surgery
PROC: 0DHA0UZ Insertion of Feeding Device into Jejunum, Open Approach (ICD-10-PCS; 2016-08-26)
PROC: 0DJ08ZZ Inspection of Upper Intestinal Tract, Via Natural or Artificial Opening Endoscopic (ICD-10-PCS; 2016-08-26)
PROC: 0WJP4ZZ Inspection of Gastrointestinal Tract, Percutaneous Endoscopic Approach (ICD-10-PCS; principal; 2016-08-26 07:30)
PROC: 3E0H76Z Introduction of Nutritional Substance into Lower GI, Via Natural or Artificial Opening (ICD-10-PCS; 2016-09-01)
PROC: 0D2DXUZ Change Feeding Device in Lower Intestinal Tract, External Approach (ICD-10-PCS; 2016-09-13)
PROC: 3E0H3KZ Introduction of Other Diagnostic Substance into Lower GI, Percutaneous Approach (ICD-10-PCS; 2016-09-19)
DX: I63.9 Cerebral infarction, unspecified (principal); G93.40 Encephalopathy, unspecified; I47.2 Ventricular tachycardia; G81.91 Hemiplegia, unspecified affecting right dominant side; I50.22 Chronic systolic (congestive) heart failure; K94.13 Enterostomy malfunction; R13.12 Dysphagia, oropharyngeal phase; I11.0 Hypertensive heart disease with heart failure; D51.9 Vitamin B12 deficiency anemia, unspecified; R47.01 Aphasia; D50.9 Iron deficiency anemia, unspecified; E78.5 Hyperlipidemia, unspecified; Y83.8 Other surgical procedures as the cause of abnormal reaction of the patient, or of later complication, without mention of misadventure at the time of the procedure; E66.01 Morbid (severe) obesity due to excess calories; Z68.39 Body mass index [BMI] 39.0-39.9, adult; L21.9 Seborrheic dermatitis, unspecified; R47.1 Dysarthria and anarthria; R32 Unspecified urinary incontinence; I95.1 Orthostatic hypotension; K44.9 Diaphragmatic hernia without obstruction or gangrene; R63.3 Feeding difficulties; R74.8 Abnormal levels of other serum enzymes; E55.9 Vitamin D deficiency, unspecified; R19.7 Diarrhea, unspecified; I51.7 Cardiomegaly; N40.1 Benign prostatic hyperplasia with lower urinary tract symptoms; I44.7 Left bundle-branch block, unspecified; K21.9 Gastro-esophageal reflux disease without esophagitis; F32.9 Major depressive disorder, single episode, unspecified; R29.810 Facial weakness; Z79.899 Other long term (current) drug therapy; Z91.81 History of falling
CPT/HCPCS: 36600; 43752; 49440; 49451; 49465; 70450; 70496; 70498; 71010; 74176; 74230; 76380; 76700; 80048; 80053; 80061; 80069; 80074; 80076; 81001; 82140; 82306; 82533; 82607; 82728; 82746; 82805; 82962; 83036; 83540; 83550; 83735; 83880; 84100; 84443; 84484; 85014; 85018; 85025; 85049; 85347; 85610; 85730; 90686; 92507-GN; 92523-GN; 92610-GN; 92611-GN; 93005; 95819; 97110-GO; 97110-GP; 97112-GO; 97116-GP; 97162-GP; 97164-GP; 97166-GO; 97168-GO; 97530-GO; 97530-GP; 97532-GO; 97535-GO; 99152; 99153; 99285; A9270-GY; C1769; C1894; C8924; C8929; C9113; G0008; G8978-CK-GP; G8978-CL-GP; G8979-CH-GP; G8979-CI-GP; G8979-CJ-GP; G8987-CL-GO; G8988-CK-GO; G8996-CJ-GN; G8996-CK-GN; G8996-CN-GN; G8997-CJ-GN; G8997-CK-GN; G8997-CN-GN; G8998-CJ-GN; G8998-CK-GN; G8998-CN-GN; G8999-CM-GN; G9158-CM-GN; G9186-CM-GN; J0360; J0690; J1953; J2250; J2405; J2710; J2916; J3010; Q9957; Q9967